=== PATIENT | male | born 1960 | race Two or more races ===

== ENCOUNTER 2024-07-11 18:21 | Inpatient (IN) | payer OTHER, MEDICAID ==
[~2024-07-11] VITALS: Ht 167.6 cm; Wt 72.2 kg
[2024-07-11] MEDS ORDERED: ATOR-47 PO (18:51)
[2024-07-11] MEDS ORDERED: LISI20TA56 PO (18:51)
[2024-07-11] MEDS ORDERED: TAMS0.4C39 PO (18:51)
[2024-07-11] MEDS ORDERED: NIFE90TA75 PO (18:51)
--- NOTE | 2024-07-11 19:13 | DVH ---
CHEST RADIOGRAPH Indication: P pain Technique: Single frontal view of the chest was obtained COMPARISON: None FINDINGS: Lines and Tubes: None Lungs: Clear Pleura: No effusion. No pneumothorax. Cardiomediastinal contours: Unremarkable Bones: Unremarkable IMPRESSION: No acute disease.
[2024-07-11 19:36] LABS: Basophils # (auto) 0.1 10 ^3/uL (0-0.2); Basophils % (auto) 1.1 % (0.0-2.0); Eosinophils # (auto) 0.2 10 ^3/uL (0-0.8); Eosinophils % (auto) 2.5 % (0.0-7.0); Hematocrit 40.1 % (41.0-53.0); Hemoglobin 13.7 g/dL (13.5-17.5); Lymphocytes # (auto) 2.2 10 ^3/uL (0.4-5.4); Lymphocytes % (auto) 25.2 % (10.0-50.0); Mean Corpuscular Hemoglobin 31.1 pg (28.0-32.0); Mean Corpuscular Hgb Conc. 34.2 g/dL (32.0-36.0); Mean Corpuscular Volume 90.9 fL (80.0-100.0); Monocytes # (auto) 0.6 10 ^3/uL (0-1.3); Monocytes % (auto) 7.2 % (0.0-12.0); Neutrophils # (auto) 5.5 10 ^3/uL (1.6-8.6); Platelet Count (auto) 260 10^3/uL (140-450); Red Blood Cells 4.42 10^6/uL (4.5-5.90); Red Cell Distribution Width 13.5 % (11.8-14.3); White Blood Cell 8.7 10^3/uL (4.4-10.8)
[2024-07-11 19:51] LABS: Alanine Aminotransferase 40 U/L (7-40); Albumin 4.4 g/dL (3.2-4.8); Alkaline Phosphatase 81 U/L (46-116); Anion Gap 7 (5-15); Aspartate Aminotransferase 19 U/L (13-40); BUN/Creatinine Ratio 20.5 (10.0-20.0); Blood Urea Nitrogen 16 mg/dL (9-23); Carbon Dioxide 27 mmol/L (20-31); Glucose 81 mg/dL (74-106); INR 0.97 (0.9-1.15); Partial Thromboplastin Time 25.6 SEC (24.5-34.5); Potassium 4.1 mmol/L (3.5-5.1); Prothrombin Time 10.3 sec (9.3-11.8); Sodium 144 mmol/L (136-145)
[2024-07-11 19:52] LABS: Total Protein 6.6 g/dL (5.7-8.2)
[2024-07-11 19:53] LABS: Bilirubin, Total 0.2 mg/dL (0.2-1.0); Calcium 10.6 mg/dL (8.7-10.4); Chloride 110 mmol/L (98-107)
--- NOTE | 2024-07-11 20:01 | ED.PDOC ---
History of Present Illness HPI Comments 63 year old male complains of chronic neck and lower back pain and states that he has been losing strength in his arms and legs for the last 6 months. patient was evaluated by Dr Martínez who told him to come to the ED for admission for pre- op to go to surgery Chief Complaint: General Weakness Time Seen by MD: 18:27 Allergies: Coded Allergies: NO KNOWN ALLERGIES (Unverified , 07/11/24) Home Meds Reported Medications Lisinopril (Lisinopril) 20 Mg Tab, 1 TAB PO DAILY, #30 TAB 5 Refills 07/11/24 Nifedipine (Nifedipine Er) 90 Mg Tab, 1 TAB PO DAILY, #30 TAB 5 Refills 07/11/24 Atorvastatin Calcium (ATORVASTATIN CALCIUM) 80 Mg Tab, 1 TAB PO DAILY, #30 TAB 5 Refills 07/11/24 Tamsulosin Hcl (Tamsulosin Hcl) 0.4 Mg Cap, 0.4 MG PO QPM for 30 Days, MG 07/11/24 Information Source: Patient Mode of Arrival: Wheelchair Severity: Severe Timing: Months Duration: Other Past Medical History PAST MEDICAL HISTORY: High Lipids, HTN Past Medical History (Other): spinal injury Surgical History: Unknown Family History Family History: Reviewed,noncontributory to illness Social History Smoker: Unknown Alcohol: Unknown Constitutional: reports: fatigue Neurological: reports: tingling, weakness All Other Systems: Reviewed and Negative Physical Exam General Appearance: Moderate Distress, Normal HEENT: Normal ENT Inspection, Pharynx Normal, TMs Normal Neck: Full Range of Motion, Non-Tender, Normal, Normal Inspection Respiratory: Chest Non-Tender, Lungs Clear, No Accessory Muscle Use, No R espiratory Distress, Normal Breath Sounds Cardiovascular: No Edema, No JVD, No Murmur, No Gallop, Normal Peripheral Pulses, Regular Rate/Rhythm Breast Exam: Deferred Gastrointestinal: No Organomegaly, Non Tender, No Pulsatile Mass, Normal Bowel Sounds, Soft Genitalia: Deferred Pelvic: Deferred Rectal: Deferred Extremities: No calf tenderness, Normal capillary refill, Normal inspection, Normal range of motion, Non-tender, No pedal edema Musculoskeletal : Apperance: Normal Neurologic: No Motor Deficits, Other (motor 5/5, sensation grossly intact) Cerebellar Function: Normal Reflexes: Normal Skin: Dry, Normal Color, Warm Lymphatic: No Adenopathy Was a procedure done? Was a procedure done?: No Differential Dx Considerations may include: Differential diagnosis includes but is not limited to: coronary ischemia, dehydration, sepsis, electrolyte abnormality, symptomatic anemia, hypovolemia and others X-Ray, Labs, Meds, VS Vital Signs Date Time Temp Pulse Resp B/P (MAP) Pulse Ox O2 Delivery O2 Flow Rate FiO2 07/11/24 18:35 98.5 84 18 135/105 (115) 96 Lab Test 07/11/24 19:13 Range/Units White Blood Count 8.7 4.4-10.8 10^3/uL Red Blood Count 4.42 L 4.5-5.90 10^6/uL Hemoglobin 13.7 13.5-17.5 g/dL Hematocrit 40.1 L 41.0-53.0 % Mean Corpuscular Volume 90.9 80.0-100.0 fL Mean Corpuscular Hemoglobin 31.1 28.0-32.0 pg Mean Corpuscular Hemoglobin Concent 34.2 32.0-36.0 g/dL Red Cell Distribution Width 13.5 11.8-14.3 % Platelet Count 260 140-450 10^3/uL Mean Platelet Volume 9.7 6.9-10.8 fL Neutrophils (%) (Auto) 64.0 37.0-80.0 % Lymphocytes (%) (Auto) 25.2 10.0-50.0 % Monocytes (%) (Auto) 7.2 0.0-12.0 % Eosinophils (%) (Auto) 2.5 0.0-7.0 % Basophils (%) (Auto) 1.1 0.0-2.0 % Neutrophils # (Auto) 5.5 1.6-8.6 10 ^3/uL Lymphocytes # (Auto) 2.2 0.4-5.4 10 ^3/uL Monocytes # (Auto) 0.6 0-1.3 10 ^3/uL Eosinophils # (Auto) 0.2 0-0.8 10 ^3/uL Basophils # (Auto) 0.1 0-0.2 10 ^3/uL Nucleated Red Blood Cells 0.0 % Prothrombin Time 10.3 9.3-11.8 sec Prothrombin Time INR 0.97 0.9-1.15 Activated Partial Thromboplast Time 25.6 24.5-34.5 SEC Sodium Level 144 136-145 mmol/L Potassium Level 4.1 3.5-5.1 mmol/L Chloride Level 110 H 98-107 mmol/L Carbon Dioxide Level 27 20-31 mmol/L Anion Gap 7 5-15 Blood Urea Nitrogen 16 9-23 mg/dL Creatinine 0.78 0.700-1.30 mg/dL Glomerular Filtration Rate Calc 99 >90 mL/min BUN/Creatinine Ratio 20.5 H 10.0-20.0 Serum Glucose 81 74-106 mg/dL Calcium Level 10.6 H 8.7-10.4 mg/dL Total Bilirubin 0.2 0.2-1.0 mg/dL Aspartate Amino Transferase (AST) 19 13-40 U/L Alanine Aminotransferase (ALT) 40 7-40 U/L Alkaline Phosphatase 81 46-116 U/L Total Protein 6.6 5.7-8.2 g/dL Albumin 4.4 3.2-4.8 g/dL Time of 1ST Reevaluation: 19:30 Reevaluation 1ST: Unchanged Patient Education/Counseling: Diagnosis, Treatment Family Education/Counseling: No Family Present Departure 1 Departure Time of Disposition: 19:59 Impression: Primary Impression: Cervical nerve root impingement Additional Impression: Low back pain Disposition: ADMITTED INPATIENT Condition: Guarded Discharged With: Self Critical Care Note Critical Care Time?: Yes (45 min-critical care time only) Critical care comment: Total critical care time: Approximately 36 minutes Due to a high probability of clinically significant, life threatening deterioration, the patient required my highest level of preparedness to intervene emergently and I personally spent this critical care time directly and personally managing the patient. This critical care time included obtaining a history; examining the patient; pulse oximetry; ordering and review of studies; arranging urgent treatment with development of a management plan; evaluation of patient's response to treatment; frequent reassessment; and, discussions with other providers. This critical care time was performed to assess and manage the high probability of imminent, life-threatening deterioration that could result in multi-organ failure. It was exclusive of separately billable procedures and treating other patients. Stability Stability form required: No Heart Score Heart Score: Heart Score Response (Comments) Value History N/A 0 EKG N/A 0 Age N/A 0 Risk Factors N/A 0 Troponin N/A 0 Total 0 OJ BRIONES MD Jul 11, 2024 20:01
[2024-07-11] MEDS ORDERED: MORPHINE SULFATE INJ 2 MG/ml SYRG IV PRN (23:15)
[2024-07-11] MEDS ORDERED: ONDANSETRON HCL 4 MG/2 ML VIAL IV PRN (23:15)
[2024-07-12] VITALS (8 sets, daily range): BP systolic 123–162; BP diastolic 61–87; PULSE 62–74; RESP 16–20; TEMP 97.5–98.6; O2SAT 93–99
[2024-07-12 00:03] LABS: Alanine Aminotransferase 36 U/L (7-40); Albumin 4.4 g/dL (3.2-4.8); Alkaline Phosphatase 74 U/L (46-116); Anion Gap 6 (5-15); Aspartate Aminotransferase 17 U/L (13-40); BUN/Creatinine Ratio 24.2 (10.0-20.0); Blood Urea Nitrogen 16 mg/dL (9-23); Calcium 10.2 mg/dL (8.7-10.4); Carbon Dioxide 23 mmol/L (20-31); Glucose 88 mg/dL (74-106); Potassium 3.8 mmol/L (3.5-5.1); Sodium 141 mmol/L (136-145)
[2024-07-12 00:04] LABS: Total Protein 6.8 g/dL (5.7-8.2)
[2024-07-12 00:05] LABS: Bilirubin, Total 0.3 mg/dL (0.2-1.0); Chloride 112 mmol/L (98-107)
--- NOTE | 2024-07-12 00:36 | DVHHP2 ---
Admitting Diagnosis: spinal stenosis with myelopathy , spinal cord damage History of Present Illness History Source: Patient, MD Notes Exam Limitations: No limitations HPI Mr. 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 Patient states he was evaluated by PCP, was told to come to the ED for admission for pre-op clearance and spinal surgery. I spoke to Dr. Martínez who stated patient was sent for a diagnosis of cervical spinal stenosis with myelopathy and spinal cord damage seen on MRI images and for admission for pre op surgical clearance for surgical procedure tentatively . Patient will be admitted for pre op surgical clearance and spinal orthopedic surgeon consult. Home Meds Reported Medications Lisinopril (Lisinopril) 20 Mg Tab, 1 TAB PO DAILY, #30 TAB 5 Refills 07/11/24 Nifedipine (Nifedipine Er) 90 Mg Tab, 1 TAB PO DAILY, #30 TAB 5 Refills 07/11/24 Atorvastatin Calcium (ATORVASTATIN CALCIUM) 80 Mg Tab, 1 TAB PO DAILY, #30 TAB 5 Refills 07/11/24 Tamsulosin Hcl (Tamsulosin Hcl) 0.4 Mg Cap, 0.4 MG PO QPM for 30 Days, MG 07/11/24 Past Medical History Cardiac: HTN, Hyperlipidemia Pulmonary: No pertinent Hx Central Nervous System: No pertinent Hx GI: No pertinent Hx Hemotology/Oncology: No pertinent Hx Hepatobiliary: No pertinent Hx Psychiatric: No pertinent Hx Musculoskeletal: No pertinent Hx Rheumotologic: No pertinent Hx Infectious Disease: No peritnent Hx ENT: No pertinent Hx Renal/: No pertinent Hx Endocrine: No pertinent Hx Dermatology: No pertinent Hx Smoker: No Hx (Negative) Alocohol: None Drugs: None Lives with: With family Domestic Violence: Neg Review of Systems Constitutional: No symptom reported Ears, Nose, & Throat: No symptom reported Eyes: No symptom reported Pulmonary/Respiratory: No symptom reported Cardiovascular: No symptom reported Gastrointestinal: No symptom reported Genitourinary: No symptom reported Musculoskeletal: Neck pain, Back pain Skin: No symptom reported Psychiatric: No symptom reported Endocrine: No symptom reported Hemotologic/Lymphatic: No symptom reported H&P Exam Vital Signs Vital Signs Date Time Temp Pulse Resp B/P (MAP) Pulse Ox O2 Delivery O2 Flow Rate FiO2 07/11/24 20:19 97.7 77 14 153/102 (119) 95 97.7 General Appeara: Well developed, Well nourished, Normal Appearance Head Exam: Normal inspection Neck Exam: Normal inspection, Non-tender, Normal alignment Eye Exam: bilateral eye Normal inspection, bilateral eye PERRL, bilateral eye EOMI Ear Exam: bilateral ear Auricle normal Nasal Exam: Normal inspection Mouth: Normal Inspection Pulmonary/Respiratory: Normal inspection, Normal breath sounds, Chest non- tender, Lungs clear Cardiovascular/Chest: Normal inspection, Regular rate, Normal Rhythm Peripheral Pulses: 2+ dorsalis pedis (R), 2+ dorsalis pedis (L), 2+ Radial (R), 2+ Radial (L) Abdominal Exam: Normal bowel sounds, Soft Rectal Exam: Deferred Back Exam: Normal inspection Male Genital Exam: Not done Hand Exam: Other (bilateral hands 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 Exam: Normal hearing, Normal speech, PERRL Neuro/Mental St: Alert, Oriented Appearance: Appropriate appearance, Appropriate insight Thoughts/Psych: Normal thought pattern Skin Exam: Normal inspection, Normal color, Warm/dry Labs/Xrays Labs Test 07/11/24 23:33 07/11/24 19:13 Range/Units Sodium Level 141 136-145 mmol/L Potassium Level 3.8 3.5-5.1 mmol/L Chloride Level 112 H 98-107 mmol/L Carbon Dioxide Level 23 20-31 mmol/L Anion Gap 6 5-15 Blood Urea Nitrogen 16 9-23 mg/dL Creatinine 0.66 L 0.700-1.30 mg/dL Glomerular Filtration Rate Calc 104 >90 mL/min BUN/Creatinine Ratio 24.2 H 10.0-20.0 Serum Glucose 88 74-106 mg/dL Calcium Level 10.2 8.7-10.4 mg/dL Total Bilirubin 0.3 0.2-1.0 mg/dL Aspartate Amino Transferase (AST) 17 13-40 U/L Alanine Aminotransferase (ALT) 36 7-40 U/L Alkaline Phosphatase 74 46-116 U/L Total Protein 6.8 5.7-8.2 g/dL Albumin 4.4 3.2-4.8 g/dL White Blood Count 8.7 4.4-10.8 10^3/uL Red Blood Count 4.42 L 4.5-5.90 10^6/uL Hemoglobin 13.7 13.5-17.5 g/dL Hematocrit 40.1 L 41.0-53.0 % Mean Corpuscular Volume 90.9 80.0-100.0 fL Mean Corpuscular Hemoglobin 31.1 28.0-32.0 pg Mean Corpuscular Hemoglobin Concent 34.2 32.0-36.0 g/dL Red Cell Distribution Width 13.5 11.8-14.3 % Platelet Count 260 140-450 10^3/uL Mean Platelet Volume 9.7 6.9-10.8 fL Neutrophils (%) (Auto) 64.0 37.0-80.0 % Lymphocytes (%) (Auto) 25.2 10.0-50.0 % Monocytes (%) (Auto) 7.2 0.0-12.0 % Eosinophils (%) (Auto) 2.5 0.0-7.0 % Basophils (%) (Auto) 1.1 0.0-2.0 % Neutrophils # (Auto) 5.5 1.6-8.6 10 ^3/uL Lymphocytes # (Auto) 2.2 0.4-5.4 10 ^3/uL Monocytes # (Auto) 0.6 0-1.3 10 ^3/uL Eosinophils # (Auto) 0.2 0-0.8 10 ^3/uL Basophils # (Auto) 0.1 0-0.2 10 ^3/uL Nucleated Red Blood Cells 0.0 % Prothrombin Time 10.3 9.3-11.8 sec Prothrombin Time INR 0.97 0.9-1.15 Activated Partial Thromboplast Time 25.6 24.5-34.5 SEC Assessment/Plan Problem List: (1) Spinal stenosis (2) Myopathy Plan This is a 63 yo male with a known history of hyperlipidemia and hypertension who presents with neck and back pain sent for surgical spinal surgery clearance and spinal orthopedic surgical procedure. 1. Cervical spinal stenosis with myelopathy 2. Spinal cord damage Plan Admit Med Surgical unit Spinal Orthopedic Surgeon consultation IV fluids CBC, BMP, EKG, PT/INR Cardiology consultation for cardiac clearance 2D echocardiogram Urinalysis Discussed all above with patient who verbalizes agreement and understanding of care plan. All questions were answered. Discussed assessment and care plan with Spinal Orthopedic Surgeon Dr. Martínez. Discussed assessment and care plan with supervising MD. Plan discussed with: Patient, Other Code Visit Code Visit Total Time (mins): 45 Additional Comments Additional Comments Additional Comments 63-year-old male with a known history of hypertension, dyslipidemia, BPH who initially presented to the hospital bed chronic neck and lower back pain, numbness in arms and hands along with the loss of strength for last six months or so. 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 Patient underwent MRI as an outpatient found to have spinal cord damage at cervical spine. 1. Acute on chronic cervical myelopathy 2. Cervical spine stenosis 3. Hypertension 4. Dyslipidemia 5. BPH -admitted to telemetry, 2D echo cardiology consultation for preop clearance, spine surgery consultation for surgical intervention for cervical myelopathy. MARTINEZ CRABTREE Jul 12, 2024 00:36 ACE CERVANTES MD Jul 12, 2024 14:28
[2024-07-12] MEDS: D5W/SOD CHL 0.45% 1,000 ML IV SCH (04:02)
[2024-07-12 04:04] LABS: Urine Bacteria None Seen /hpf (None Seen)
[2024-07-12 04:12] LABS: Urine Blood TRACE /uL (Negative); Urine Clarity Clear (Clear); Urine Color Light-Yellow (Yellow); Urine Protein, UAD Negative (Negative); Urine Specific Gravity 1.024 (1.001-1.035); Urine Squamous Epithelial Cell None Seen /hpf (<5); Urine Urobilinogen Normal (Negative); Urine WBC < 1 /HPF (0-3); Urine pH 5.5 (5.0-9.0)
[2024-07-12 10:51] LABS: Basophils # (auto) 0.1 10 ^3/uL (0-0.2); Basophils % (auto) 0.9 % (0.0-2.0); Eosinophils # (auto) 0.2 10 ^3/uL (0-0.8); Eosinophils % (auto) 2.5 % (0.0-7.0); Hematocrit 37.6 % (41.0-53.0); Hemoglobin 12.5 g/dL (13.5-17.5); Lymphocytes # (auto) 1.5 10 ^3/uL (0.4-5.4); Lymphocytes % (auto) 19.9 % (10.0-50.0); Mean Corpuscular Hemoglobin 30.5 pg (28.0-32.0); Mean Corpuscular Hgb Conc. 33.3 g/dL (32.0-36.0); Mean Corpuscular Volume 91.6 fL (80.0-100.0); Monocytes # (auto) 0.7 10 ^3/uL (0-1.3); Monocytes % (auto) 8.5 % (0.0-12.0); Neutrophils # (auto) 5.3 10 ^3/uL (1.6-8.6); Neutrophils % (auto) 68.2 % (37.0-80.0); Platelet Count (auto) 228 10^3/uL (140-450); Red Blood Cells 4.11 10^6/uL (4.5-5.90); Red Cell Distribution Width 13.5 % (11.8-14.3); White Blood Cell 7.7 10^3/uL (4.4-10.8)
--- NOTE | 2024-07-12 12:54 | DVHINCON2 ---
Consultation - Spinal Surgery Date Seen: Jul 12, 2024 Referring Physician Referring Physician Attending Doctor: Carmen Rasheed Pantograph Ii Engraver Reason for Consultation spinal stenosis with myelopathy , spinal cord damage History of Present Illness History of Present Illness Mr. 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 Patient states he was evaluated by PCP, was told to come to the ED for admission for pre-op clearance and spinal surgery. I spoke to Dr. Martínez who stated patient was sent for a diagnosis of cervical spinal stenosis with myelopathy and spinal cord damage seen on MRI images and for admission for pre op surgical clearance for surgical procedure tentatively . Patient will be admitted for pre op surgical clearance and spinal orthopedic surgeon consult. Family and Social History Family and Social History noncontributory in this case Allergies and medications Allergies: Coded Allergies: NO KNOWN ALLERGIES (Unverified , 07/11/24) Home Meds Reported Medications Lisinopril (Lisinopril) 20 Mg Tab, 1 TAB PO DAILY, #30 TAB 5 Refills 07/11/24 Nifedipine (Nifedipine Er) 90 Mg Tab, 1 TAB PO DAILY, #30 TAB 5 Refills 07/11/24 Atorvastatin Calcium (ATORVASTATIN CALCIUM) 80 Mg Tab, 1 TAB PO DAILY, #30 TAB 5 Refills 07/11/24 Tamsulosin Hcl (Tamsulosin Hcl) 0.4 Mg Cap, 0.4 MG PO QPM for 30 Days, MG 07/11/24 Review of systems Review of Systems: HEENT:Normal, CVS:Normal, RESPIRATORY:Normal, GI:Normal, :Normal, NEURO:Normal Examination Vital signs Vital Signs Date Time Temp Pulse Resp B/P (MAP) Pulse Ox O2 Delivery O2 Flow Rate FiO2 07/12/24 12:39 98.1 62 16 147/67 (93) 93 98.1 07/12/24 08:00 Room Air* 0 21 Medications Current Medications Medications (Trade) Dose Ordered Sig/Julien Route PRN Reason Start Time Stop Time Status Last Admin Ondansetron HCl (Zofran) 4 mg Q6HP PRN IV NAUSEA / VOMITING 07/11/24 23:15 Morphine Sulfate 2 mg Q6HPRN PRN IV NAUSEA / VOMITING 07/11/24 23:15 Dextrose/Sodium Chloride 1,000 ml @ 75 mls/hr [id number] IV 07/11/24 23:30 07/12/24 04:02 Laboratory Labs Test 07/12/24 10:23 07/11/24 23:59 07/11/24 23:33 07/11/24 19:13 Range/Units White Blood Count 7.7 4.4-10.8 10^3/uL Red Blood Count 4.11 L 4.5-5.90 10^6/uL Hemoglobin 12.5 L 13.5-17.5 g/dL Hematocrit 37.6 L 41.0-53.0 % Mean Corpuscular Volume 91.6 80.0-100.0 fL Mean Corpuscular Hemoglobin 30.5 28.0-32.0 pg Mean Corpuscular Hemoglobin Concent 33.3 32.0-36.0 g/dL Red Cell Distribution Width 13.5 11.8-14.3 % Platelet Count 228 140-450 10^3/uL Mean Platelet Volume 9.4 6.9-10.8 fL Neutrophils (%) (Auto) 68.2 37.0-80.0 % Lymphocytes (%) (Auto) 19.9 10.0-50.0 % Monocytes (%) (Auto) 8.5 0.0-12.0 % Eosinophils (%) (Auto) 2.5 0.0-7.0 % Basophils (%) (Auto) 0.9 0.0-2.0 % Neutrophils # (Auto) 5.3 1.6-8.6 10 ^3/uL Lymphocytes # (Auto) 1.5 0.4-5.4 10 ^3/uL Monocytes # (Auto) 0.7 0-1.3 10 ^3/uL Eosinophils # (Auto) 0.2 0-0.8 10 ^3/uL Basophils # (Auto) 0.1 0-0.2 10 ^3/uL Nucleated Red Blood Cells 0.0 % Urine Color Light-yellow Yellow Urine Clarity Clear Clear Urine pH 5.5 5.0-9.0 Urine Specific [place] 1.024 1.001-1.035 Urine Protein Negative Negative Urine Ketones Negative Negative Urine Blood Trace H Negative /uL Urine Nitrite Negative Negative Urine Bilirubin Negative Negative Urine Urobilinogen Normal Negative mg/dL Urine Leukocyte Esterase Negative Negative /uL Urine RBC 1 0 - 3 /hpf Urine Microscopic WBC < 1 0-3 /HPF Urine Squamous Epithelial Cells None seen <5 /hpf Urine Bacteria None seen None Seen /hpf Urine Glucose Normal Normal mg/dL Sodium Level 141 136-145 mmol/L Potassium Level 3.8 3.5-5.1 mmol/L Chloride Level 112 H 98-107 mmol/L Carbon Dioxide Level 23 20-31 mmol/L Anion Gap 6 5-15 Blood Urea Nitrogen 16 9-23 mg/dL Creatinine 0.66 L 0.700-1.30 mg/dL Glomerular Filtration Rate Calc 104 >90 mL/min BUN/Creatinine Ratio 24.2 H 10.0-20.0 Serum Glucose 88 74-106 mg/dL Calcium Level 10.2 8.7-10.4 mg/dL Total Bilirubin 0.3 0.2-1.0 mg/dL Aspartate Amino Transferase (AST) 17 13-40 U/L Alanine Aminotransferase (ALT) 36 7-40 U/L Alkaline Phosphatase 74 46-116 U/L Total Protein 6.8 5.7-8.2 g/dL Albumin 4.4 3.2-4.8 g/dL Prothrombin Time 10.3 9.3-11.8 sec Prothrombin Time INR 0.97 0.9-1.15 Activated Partial Thromboplast Time 25.6 24.5-34.5 SEC Examination: HEENT:Normal, NECK:Normal, LUNGS:Normal, CVS:Normal, ABDOMEN:Normal, MSK:Normal, SKIN:Normal, NEURO:Abnormal (Complains of low back pain patient is experiencing extensive muscle cramping to the lower extremities he is unable to ambulate barely able to progress with a cane. He is unable to control his feet and ankles.) Problem List/Assessment/Plan Problems: (1) Cervical nerve root impingement (2) Spinal stenosis Assessment and Plan This patient is well known to Dr Martínez and the patient has been suffering from spinal stenosis for some time as demonstrated in excruciating pain which is impacting his ability to function during his activities of daily living. Has has exhausted conservative management of his ailments and is a candidate for surgical intervention. The plan is for surgery on 07/13/2024 for a cervical three-seven anterior cervi clarke diskectomy and fusion with instrumentation and bone graft Proceed with medical and cardiac clearance for spine surgery. Patient is a surgical consideration pending the availability of the OR. NPO 07/12/24 at midnight. Call with questions Tiffanie Montero [facility] Orthopaedic Spine Surgery nurse practitioner For Dr Cheyenne Martínez Patient was examined, chart reviewed, labs evaluated, and diagnostic studies and findings analyzed. Case was discussed with Dr. Boo Martínez who formulated the plan of care. This medical document was created using an electronic medical record system with [employer] dictation system. Although this document has been carefully reviewed, there might still be some phonetic and typographical errors. These areas are purely typographical due to imperfections of the software programs, and do not reflect any compromise in the patient's medical care. Plan discussed with Plan discussed with: Patient ERICA MONTERO PSYCHOSOCIAL REHABILITATION COUNSELOR Jul 12, 2024 12:54
[2024-07-12] MEDS: TAMSULOSIN HYDROCHLORIDE 0.4 MG CAP PO SCH (18:44)
[2024-07-13] VITALS (9 sets, daily range): BP systolic 121–149; BP diastolic 33–77; PULSE 63–87; RESP 16–96; TEMP 97.5–98.3; O2SAT 90–97
--- NOTE | 2024-07-13 06:05 | DVHINCON2 ---
DATE OF CONSULTATION: 07/12/2024 REFERRING PHYSICIAN: ____. CONSULTING PHYSICIAN: Dr. Smith. HISTORY OF PRESENT ILLNESS: The patient is a 63-year-old male with history of hypertension, tobacco use, presented to the hospital for back surgery. I was asked to do preoperative cardiac risk assessment. The patient denies prior history of heart disease. Denies any chest pain, shortness of breath. Denies any orthopnea, paroxysmal nocturnal dyspnea or leg swelling. PAST MEDICAL HISTORY: Hypertension. MEDICATIONS: Per med rec. ALLERGIES: No known drug allergies. PHYSICAL EXAMINATION: GENERAL: Alert and awake, in no form of cardiopulmonary distress. VITAL SIGNS: Blood pressure 135/87, pulse 70 per minute, saturation 95%. HEENT: No carotid bruits. No jugular venous distention. CHEST: Bilateral air entry. CARDIOVASCULAR SYSTEM: Precordial and carotid pulses palpable. Normal S1, S2. Regular rate and rhythm. No appreciable gallop or rubs. EXTREMITIES: No peripheral edema. DIAGNOSTIC DATA: White count 7, hemoglobin 12, platelets 220. Sodium 141, potassium 3.8, creatinine is 0.66. ASSESSMENT AND PLAN: A 63-year-old male with history of hypertension, presented to the hospital with back pain, currently being evaluated for back surgery. The patient denies a prior history of heart disease. Denies any active cardiac symptoms. We will obtain echo to assess LV function and valves. If echo is unremarkable, patient may proceed with planned surgery as an intermediate risk. Thank you for allowing me to participate in the care of this patient. MD ZACARIAS Boles/TELLY/YOUNG TID: [id number] RECEIPT: [id number]
--- NOTE | 2024-07-13 07:02 | DVHHP2 ---
History Allergies: Coded Allergies: NO KNOWN ALLERGIES (Unverified , 07/11/24) Chief Complaint: Cervical stenosis Present Illness(Onset/Duration Patient has had bilateral lower leg and extremity weakness as well as excruciating muscle spasms inability to control his feet and ankle demonstrating with bilateral footdrop. Patient states he has got low back pain, he also does not complain of any shoulder or neck pain however he does state he is feeling stiff. Patient is well known to Dr. Cole's office and has been treated for this ailment with physical therapy and pain management which have failed. Noncontributory in this case Exam Exam General Appearance: None, Normal, Thin HEENT: Normal ENT Inspection Neck: Normal, Normal Inspection Respiratory: No Accessory Muscle Use, None, No Respiratory Distress Cardiovascular: No Edema, No JVD, None Gastrointestinal: Other (No complaints of abdominal discomfort) Genitalia: Deferred Pelvic: Deferred Rectal: Deferred Extremities: Calf tenderness, Decreased range of motion, Inflammation, Normal capillary refill, Normal inspection, Other (Lower legs cramping) Neurologic: Normal Mood, No Sensory Deficits Cerebellar Function: Ataxia (Ataxia reported per patient difficulty walking) Additional comments: Patient arrives today for elective surgery with Dr. Boo grey C3-7 anterior cervical discectomy and fusion with instrumentation and bone graft The patient was informed of the risks and benefits of the procedure. These include but are not limited to complications of anesthesia, postoperative infection, incomplete relief of symptoms, recurrence of symptoms, damage to blood vessels, nerves and tendons, deep venous thrombosis, pulmonary embolism and possible need for repeat surgery in the future. The risks/benefits/alternatives of surgery including but not limited to pain, bleeding, infection, damage to surrounding soft tissue structures, need for reoperation or future surgery, persistent pain/disability/deformity, pseudoarthrotsis, bone graft collapse or extrusion of interbody device, instrumentation failure, need for instrumentation removal, dural tear, temporary or permanent nerve root damage, paralysis, stroke, deep vein thrombosis, pulmonary embolism, and any associated anesthetic risk (dry mouth, sore th roat, dental damage, myocardial infarction, respiratory depression, blindness) were described to the patient in detail and the patient wishes to proceed. No guarantee of surgical outcome/improvement was implied. All of the questions were answered thoroughly and consents were obtained. We will obtain all the necessary preop tests in order for the patient to be cleared medically. Call with questions Tiffanie Montero [facility] Orthopaedic Spine Surgery nurse practitioner For Dr Cheyenne Martínez Patient was examined, chart reviewed, labs evaluated, and diagnostic studies and findings analyzed. Case was discussed with Dr. Boo Martínez who formulated the plan of care. This medical document was created using an electronic medical record system with [employer] dictation system. Although this document has been carefully reviewed, there might still be some phonetic and typographical errors. These areas are purely typographical due to imperfections of the software programs, and do not reflect any compromise in the patient's medical care. ERICA MONTERO NP Jul 13, 2024 07:02
[2024-07-13] MEDS ORDERED: fentaNYL CITRATE 5 ML ONE (07:06)
[2024-07-13] MEDS ORDERED: KETAMINE 50mg/ML 1ml syringe ONE (07:08)
[2024-07-13] MEDS ORDERED: KETOROLAC TROMETH 30 MG/ML 1ML VIAL ONE (07:08)
[2024-07-13] MEDS ORDERED: LIDOCAINE 1% INJ PF 5ML AMP ONE (07:08)
[2024-07-13] MEDS ORDERED: MIDAZOLAM HCL 2MG/2ML 2ml VIAL (1mg/ml) ONE (07:08)
[2024-07-13] MEDS ORDERED: GLYCOPYRROLATE 0.2 MG/ML 1ML VIAL ONE (07:08)
[2024-07-13] MEDS ORDERED: HYDROCORTISONE SOD SUCC 100 MG/2ML INJ VIAL ONE (07:08)
[2024-07-13] MEDS ORDERED: PROPOFOL 10 MG/ML 20 ML IV ONE (07:08)
[2024-07-13] MEDS ORDERED: HYDROmorphone HCL 2 MG/ML VL/or syr ONE (07:08)
[2024-07-13] MEDS ORDERED: ONDANSETRON HCL 4 MG/2 ML VIAL ONE (07:08)
[2024-07-13] MEDS ORDERED: fentaNYL CITRATE 100 MCG/2 ML VL ONE (07:08)
[2024-07-13] MEDS ORDERED: ROCURONIUM 10MG/ML 10ML VIAL IV ONE (07:08)
[2024-07-13] MEDS ORDERED: ePHEDrine SULFATE 50 MG/ML AMP ONE (07:08)
[2024-07-13 07:35] LABS: Basophils # (auto) 0.1 10 ^3/uL (0-0.2); Basophils % (auto) 0.9 % (0.0-2.0); Eosinophils # (auto) 0.2 10 ^3/uL (0-0.8); Eosinophils % (auto) 2.5 % (0.0-7.0); Hematocrit 42.5 % (41.0-53.0); Mean Corpuscular Hemoglobin 30.2 pg (28.0-32.0); Mean Corpuscular Hgb Conc. 32.9 g/dL (32.0-36.0); Mean Corpuscular Volume 91.9 fL (80.0-100.0); Monocytes # (auto) 0.6 10 ^3/uL (0-1.3); Monocytes % (auto) 7.2 % (0.0-12.0); Neutrophils # (auto) 5.7 10 ^3/uL (1.6-8.6); Neutrophils % (auto) 66.4 % (37.0-80.0); Platelet Count (auto) 262 10^3/uL (140-450); Red Blood Cells 4.63 10^6/uL (4.5-5.90); Red Cell Distribution Width 13.3 % (11.8-14.3); White Blood Cell 8.6 10^3/uL (4.4-10.8)
[2024-07-13 07:48] LABS: Potassium 3.8 mmol/L (3.5-5.1); Sodium 142 mmol/L (136-145)
[2024-07-13 07:49] LABS: Anion Gap 6 (5-15); Calcium 9.9 mg/dL (8.7-10.4); Carbon Dioxide 26 mmol/L (20-31)
[2024-07-13 07:54] LABS: BUN/Creatinine Ratio 11.8 (10.0-20.0); Blood Urea Nitrogen 9 mg/dL (9-23); Glucose 83 mg/dL (74-106)
[2024-07-13 07:55] LABS: Chloride 110 mmol/L (98-107)
[2024-07-13] MEDS: LIDOCAINE W/ EPINEPHRINE 1% 20ML VIAL ONE (08:59)
[2024-07-13] MEDS: NIFEdipine ER 30 MG TAB PO SCH (10:00)
[2024-07-13] MEDS: LISINOPRIL 20 MG TAB PO SCH (10:00)
--- NOTE | 2024-07-13 10:53 | DVHOP2 ---
Operative Report - 2 Report Details Date: 07/13/24 Preop Diagnosis: cervical spinal stenosis / cervical myelopathy with cord signal changes Postop Diagnosis: same as pre op Surgeon: Boo Martínez MD Hardware Assembler: Chasity Gustafson NP Anesthesiologist: Db Anesthesia: General Consent: The patient was informed of the risks and benefits of the procedure. These include but are not limited to complications of anesthesia, postoperative infection, incomplete relief of symptoms, recurrence of symptoms, damage to blood vessels, nerves and tendons, deep venous thrombosis, pulmonary embolism and possible need for repeat surgery in the future. 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 Cervical Degenerative Disk Disease and Spinal Stenosis with MRI findings showing cord signal changes Causing incapacitating neck pain, radiculopathy and myelopathy/progressive neurologic deficit Procedure: Cervical 3 to 4 anterior cervical discectomy with Cervical 3-4 foraminotomies and facetectomies to decompression the spinal canal and Cervical 4 nerve roots Cervical 4 to 5 anterior cervical discectomy with Cervical 4-5 foraminotomies and facetectomies to decompression the spinal canal and Cervical 5 nerve roots Cervical 5 to 6 anterior cervical discectomy with Cervical 5-6 foraminotomies and facetectomies to decompression the spinal canal and Cervical 6 nerve roots Cervical 3-6 anterior cervical Fusion Cervical 3-6 anterior cervical instrumentation with freestanding cages Cervical 3-4 placement of allograft prosthetic device Cervical 4-5 placement of allograft prosthetic device Cervical 5-6 placement of allograft prosthetic device Microscope for micro dissection Surgeon: Boo Martínez MD Anesthesia: General Assist: Chasity Gustafson NP Fluids and EBL: see anesthesia note Procedure Note: The patient was seen in the Pre-anesthesia Care Unit and the site of the incis ion was initialed by me with a felt tipped marker. All questions by the patient were answered to the satisfaction of the patient and the chart was reviewed. The patient was taken to the operating room and placed supine on the [place] top table. General anesthesia was induced. Neuromonitoring leads were placed. A rolled towel was placed between the shoulder blades to hyperextend out the chest which will allow better exposure of the cervical spine. Halter traction to 10 pounds was placed. The arms were padded and adducted to the patients side making sure all pulses in the hands were present. Tape traction was undertaken on the shoulders to give us better radiographic exposure of the distal cervical spine. A gel-pad was placed under the occiput and 5 degrees of extension was placed on the neck without adverse effects to the patient. The anterior neck was prepped and draped. Pre-operative antibiotics were given 30 minutes prior to the start of the procedure. A c-arm fluoroscope was used to riri out the incision site. At this time, a time out was taken per usual protocol. Next an incision was made through the skin with a 15 blade scalpel through the subcutaneous tissue down to the platysma. Self-retainers were placed. The platysma was incised along the longitudinal border with a Metzenbaum scissors. Blunt dissection was made through the deep cervical and pre-tracheal fascia taking care to protect the carotid sheath laterally and the Trachea/esophagus medially. The dissection was carried down to the prevertebral fascia. Any crossing vessels were ligated using a vascular clip or coagulated with a bovie. An esophageal retractor was next used to retract the trachea/esophagus and a bent [address] through the anterior annulus of the cervical disk and a lateral C-arm fluoroscopic image was taken to confirm that we were at the correct level. Next, bovie electrocautery was used to expose the bones of cervical 3,4,5,6 and bipolar electrocuatery was used to lift up the Longus colli and capitus muscles. Black-Belt Self Retainers were used to retract the longus colli and capitus muscles bilaterally as well as the trachea/esophagus to the right and the carotid sheath to the left. Smooth thin Black-Belt retractors were placed proxi angelito and distally and a needle was placed again in the anterior annulus of the disk and an image taken to confirm the correct level. At this point, the microscope was wheeled in and an 11 blade scalpel incised the anterior annulus of the cervical 3/4 and 4/5 and 5/6 disks. Next, straight and curved curettes removed the remainder of the disks all the way down to the posterior longitudinal ligament. Carefully, a Aj number one rongeur incised the posterior longitudinal ligament at the lateral end of the above disks and using a micro, blunt tip nerve hook to separate the posterior longitudinal ligament from the dura, alternating 1 mm and 2 mm Kerison rongeurs removed the posterior longitudinal ligament. Next, Kerison 1mm and 2 mm rongeurs were alternated to get under the uncinate processes and undercut them to perform foraminotomies and factectomies at the cervical 3/4 and 4/5 and 5/6 levels to decompress the central canal and cervical 4,5 and 6 nerve roots. Next the microscope was wheeled away and the c-arm fluoroscope was wheeled into the field and a lateral image was obtained. Increasing size graft trials were used starting at a 5 mm thick size until the proper tension in the disk space and height mormonism obtained. We then placed final free standing cages at C3/4 and 4/5 and 5/6. Satisfactory placement was confirmed in the AP and lateral views using a C-arm fluoroscope. Copious irrigation of the wound with sterile saline and all bleeding was controlled before closure initiated. At this point, a 10 Danish round Du[address] Drain was place deep to the Platysma muscle and the Platysma was approximated with one interrupted 0-Vicryl suture. The subcutaneous tissue was closed with interrupted 2-0 vicryl sutures and the skin was closed with kenneth. Sterile dressings were placed and a cervical collar placed, the patient extubated, transferred to the stretcher and taken to the Recovery Room in unremarkable condition. Other Notes: Following the case, in PACU, the patient had placement of a [place] J equivalent cervical collar and external bone stimulator Condition Stable Disposition Still a Patient BOO MARTÍNEZ MD Jul 13, 2024 10:53
[2024-07-13] MEDS ORDERED: HYDROmorphone HCL 2 MG/ML VL/or syr IV PRN (11:30)
--- NOTE | 2024-07-13 11:31 | DVH ---
EXAM: XY C ARM FLUOROSCOPY UP TO 60MIN, XY CERVICAL SPINE 3V HISTORY: C3-C6 ANTERIOR CERVICAL DISCECTOMY FUSION FINDINGS: Fluoroscopy was provided for an intraoperative procedure. 7 images were obtained. 6.5 seconds of fl uoroscopic time was utilized. Cumulative radiation dose was reported at 1.44 mGy. IMPRESSION: 1. Fluoroscopy was provided for operative guidance. Please refer to the operative report for detaile d information.
[2024-07-13] MEDS: ceFAZolin 2 GM/D5W100ml 100 ML IV ONE (11:41)
[2024-07-13] MEDS: ONDANSETRON HCL 4 MG/2 ML VIAL IV ONE (11:41)
[2024-07-13] MEDS: TRANEXAMIC ACID 20 ML ONE (11:41)
[2024-07-13] MEDS: CIPROFLOXACIN 400 MG/200 ML IV ONE (11:41)
--- NOTE | 2024-07-13 12:54 | ECG ---
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
--- NOTE | 2024-07-13 13:08 | DVHSR ---
APPROVED REPORT EXAM: Two-dimensional and M-mode echocardiogram with Doppler and color Doppler. INDICATION Tachycardia RISK FACTORS Height: 5'7", Weight: 111 DIMENSIONS LVDd4.9 (3.8-5.7cm)LA (2D)3.9 (1.9-4.0cm)Aortic Root (2.0-3.7cm) LVDs3.3 (2.5-4.0cm)LA (MM) (1.9-4.0cm)Aortic Cusp Exc (1.5-2.0cm) EF (%) 60.0 (55-70%)Rt. Atrium3.3 (1.9-4.0cm)Asc. Aorta cm Mitral Valve MitralMitral Stenosis E/A ratio0.02D MVAcm2 LEFT VENTRICLE The left ventricle is normal size. There is normal left ventricular wall thickness. The left ventricle is normal in structure and function. Left ventricle systolic function is normal. The Ejection Fraction is 60-65%. No regional wall motion abnormalities noted. RIGHT VENTRICLE The right ventricle is normal size. There is normal right ventricular wall thickness. The right ventricular systolic function is normal. ATRIA The left atrium size is normal. The right atrium size is normal. The interatrial septum is intact with no evidence for an atrial septal defect. MITRAL VALVE The mitral valve is normal in structure and function. There is no evidence of mitral valve prolapse. There is no mitral valve stenosis. Mitral regurgitation is mild. PULMONIC VALVE The pulmonary valve is normal in structure and function. There is no pulmonic valvular regurgitation. There is no pulmonic valvular stenosis. TRICUSPID VALVE The tricuspid valve is normal in structure and function. There is no tricuspid valve regurgitation noted. There is no tricuspid valve prolapse or vegetation. There is no tricuspid valve stenosis. AORTIC VALVE The aortic valve is normal in structure and function. No aortic regurgitation is present. There is no aortic valvular stenosis. There is no aortic valvular vegetation. GREAT VESSELS The aortic root is normal in size. PERICARDIAL EFFUSION There is a no pericardial effusion. Other Information Quality : Technically LimitedRhythm : Technically limited study due to body habitus and patient position. Conclusion The left ventricle is normal size. The left ventricle is normal in structure and function. Left ventricle systolic function is normal. The Ejection Fraction is 60-65%. Mitral regurgitation is mild. There is a no pericardial effusion.
--- NOTE | 2024-07-13 14:15 | DVHPN2 ---
Subjective Patient underwent spine surgery intervention today. Complaining of minimal neck pain. 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 Medications Current Medications Medications Dose Ordered Sig/Julien Route Start Time Stop Time Status Last Admin Dose Admin Ondansetron HCl 4 mg Q6HP PRN IV 07/11/24 23:15 Dextrose/Sodium Chloride 1,000 ml @ 75 mls/hr [id number] IV 07/11/24 23:30 07/13/24 02:10 75 MLS/HR Lisinopril 20 mg DAILY PO 07/13/24 10:00 Tamsulosin HCl 0.4 mg QPM PO 07/12/24 18:00 07/12/24 18:44 0.4 MG Atorvastatin Calcium 80 mg HS PO 07/13/24 22:00 Nifedipine 90 mg DAILY PO 07/13/24 10:00 Morphine Sulfate 2 mg Q4HPRN PRN IV 07/13/24 11:30 Cyclobenzaprine HCl 10 mg TID PO 07/13/24 14:00 Throat Lozenges 1 reuben Q2HP PRN MT 07/13/24 11:30 Acetaminophen/ Hydrocodone Bitart 1 tab Q4HP PRN PO 07/13/24 11:30 Laboratory Results Laboratory Tests 07/13/24 06:24 Chemistry Test 07/13/24 06:24 Calcium Level 9.9 mg/dL (8.7-10.4) Magnesium Level 2.0 mg/dL (1.6-2.6) Urinalysis Test 07/11/24 23:59 Urine Color Light-yellow (Yellow) Urine Clarity Clear (Clear) Urine pH 5.5 (5.0-9.0) Urine Specific [place] 1.024 (1.001-1.035) Urine Protein Negative (Negative) Urine Ketones Negative (Negative) Urine Blood Trace /uL (Negative) H Urine Nitrite Negative (Negative) Urine Bilirubin Negative (Negative) Urine Urobilinogen Normal mg/dL (Negative) Urine Leukocyte Esterase Negative /uL (Negative) Urine RBC 1 /hpf (0 - 3) Urine Microscopic WBC < 1 /HPF (0-3) Urine Squamous Epithelial Cells None seen /hpf (<5) Urine Bacteria None seen /hpf (None Seen) Urine Glucose Normal mg/dL (Normal) Assessment/Plan Assessment/Plan 63-year-old male with a known history of hypertension, dyslipidemia, BPH who initially presented to the hospital bed chronic neck and lower back pain, numbness in arms and hands along with the loss of strength for last six months or so. 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 Patient underwent MRI as an outpatient found to have spinal cord damage at cervical spine. 1. Acute on chronic cervical myelopathy status post anterior cervical diskectomy at C3-4/C4-5/C5-6 level 2. Cervical spine stenosis status post spine surgery intervention 3. Hypertension 4. Dyslipidemia 5. BPH -pain meds as needed, follow up spine surgery recommendations. Plan discussed with: Patient My Orders Orders - ACE CERVANTES MD Procedure Category Date Status Time Lisinopril Tablet PHA 07/13/24 In Process (Zestril Tablet) 10:00 Tamsulosin PHA 07/12/24 In Process Hydrochloride (Flomax) 18:00 Atorvastatin (Lipitor) PHA 07/13/24 In Process 22:00 Nifedipine Er PHA 07/13/24 In Process (Procardia Xl 10:00 Initiate Vte DEVI 07/13/24 In Process Prophylaxis 13:32 Date of Service: Jul 13, 2024 Billing Provider: ACE CERVANTES MD Common Visit Codes: NOT BILLABLE ACE CERVANTES MD Jul 13, 2024 14:15
[2024-07-13] MEDS: CYCLOBENZAPRINE HCL 10 MG TAB PO SCH (15:00)
[2024-07-13] MEDS: ATORVASTATIN 20 MG TAB PO SCH (20:15)
[2024-07-13] MEDS: MORPHINE SULFATE INJ 2 MG/ml SYRG IV PRN (20:17)
[2024-07-14] VITALS (7 sets, daily range): BP systolic 124–159; BP diastolic 58–76; PULSE 69–92; RESP 18–19; TEMP 97.6–98.9; O2SAT 91–96
[2024-07-14] MEDS: HYDROcodone-ACET 10/325MG TAB PO PRN (02:01)
[2024-07-14] MEDS: MORPHINE SULFATE 4 MG/ML SYR/VIAL IV PRN (09:15)
[2024-07-14] MEDS: THROAT LOZENGES(CEPASTAT) MT PRN (09:16)
--- NOTE | 2024-07-14 12:42 | DVHPN2 ---
Progress Note - Surgical Date Seen: Jul 14, 2024 Post op day Post op day: 1 Subjective Patient reports: No new complaints, Feels better Review of Systems: HEENT:Normal, CVS:Normal, RESPIRATORY:Normal, GI:Normal, :Normal, MSK:Normal (see H&P for preoperative symptoms), NEURO:Normal Objective Vital signs Vital Sign Date Time Temp Pulse Resp B/P (MAP) Pulse Ox O2 Delivery O2 Flow Rate FiO2 07/14/24 09:15 69 14 146/67 07/14/24 09:00 97.8 95 97.8 07/14/24 08:00 Room Air* 0 21 Total Intake and Output 07/13/24 07/13/24 07/14/24 14:59 22:59 06:59 Intake Total 240 ml 725 ml Output Total 10 ml 115 ml 1050 ml Balance -10 ml 125 ml -325 ml Medications Current Medications Medications Dose Ordered Sig/Julien Route Start Time Stop Time Status Last Admin Dose Admin Ondansetron HCl 4 mg Q6HP PRN IV 07/11/24 23:15 Dextrose/Sodium Chloride 1,000 ml @ 75 mls/hr [id number] IV 07/11/24 23:30 07/14/24 05:08 75 MLS/HR Lisinopril 20 mg DAILY PO 07/13/24 10:00 07/14/24 09:13 20 MG Tamsulosin HCl 0.4 mg QPM PO 07/12/24 18:00 07/13/24 18:11 0.4 MG Atorvastatin Calcium 80 mg HS PO 07/13/24 22:00 07/13/24 20:15 80 MG Nifedipine 90 mg DAILY PO 07/13/24 10:00 07/14/24 09:14 90 MG Cyclobenzaprine HCl 10 mg TID PO 07/13/24 14:00 07/14/24 05:32 10 MG Throat Lozenges 1 sabino Q2HP PRN MT 07/13/24 11:30 07/14/24 09:16 1 SAIBNO Acetaminophen/ Hydrocodone Bitart 1 tab Q4HP PRN PO 07/13/24 11:30 07/14/24 06:58 1 TAB Morphine Sulfate 4 mg Q4HPRN PRN IV 07/14/24 09:00 07/14/24 09:15 4 MG Laboratory Laboratory Tests 07/13/24 06:24 Test 07/13/24 06:24 Range/Units Serum Glucose 83 74-106 mg/dL Examination: GENERAL:Normal, HEENT:Normal (pt eating lunch, shewwing and swallowing effective to complete a taco.), NECK:Normal (xpected post operative pain and sore throat. Airway intact, able to handle secretions and eat as well as drink.), LUNGS:Normal, CVS:Normal, ABDOMEN:Normal, MSK:Normal, SKIN:Normal (left anterior neck wound well approximated with suture. Drain intact, noted to be leaking at drain site. DC drain today.), NEURO:Normal (pt has not walked as of yet, legs and feet not cramping as they were preop), :Normal Problem List/Assessment/Plan Problems: (1) Muscle spasms of neck (2) Postoperative pain after spinal surgery Assessment and Plan Drain DC today. pt tolerated well awaiting PT eval and treatment recommendations. Patient is progressing as expected and experiencing normal post operative pain. Patient is progressing to Discharge. Call with questions Tiffanie Gustafson [facility] Orthopaedic Spine Surgery nurse practitioner For Dr Cheyenne Martínez Patient was examined, chart reviewed, labs evaluated, and diagnostic studies and findings analyzed. Case was discussed with Dr. Boo Martínez who formulated the plan of care. This medical document was created using an electronic medical record system with [employer] dictation system. Although this document has been carefully reviewed, there might still be some phonetic and typographical errors. These areas are purely typographical due to imperfections of the software programs, and do not reflect any compromise in the patient's medical care. My Orders My Orders Orders - ERICA GUSTAFSON NP Procedure Category Date Status Time Morphine Sulfate PHA 07/14/24 In Process Injection 09:00 Convert To Saline DEVI 07/14/24 In Process Lock When Ta 12:35 Plan discussed with Plan discussed with: Patient, Other (Kelsey garcia [id number]) Visit Coding Surgery Date of Service if different f: Jul 14, 2024 Billing Provider: ERICA GUSTAFSON NP Surgery Visit Codes: NOT BILLABLE ERICA GUSTAFSON NP Jul 14, 2024 12:42
--- NOTE | 2024-07-14 12:52 | DVHDS2 ---
Discharge Summary Date of Admission Jul 11, 2024 at 23:14 Date of Discharge: Jul 19, 2024 Admitting Diagnosis Cervical stenosis Wounds: Left anterior neck, well approximated with sutures, drain site intact, minimal swelling noted. Labs/Diagnostic Data: Laboratory Results Test 07/13/24 06:24 07/11/24 23:59 07/11/24 23:33 07/11/24 19:13 White Blood Count 8.6 10^3/uL (4.4-10.8) Red Blood Count 4.63 10^6/uL (4.5-5.90) Hemoglobin 14.0 g/dL (13.5-17.5) Hematocrit 42.5 % (41.0-53.0) Mean Corpuscular Volume 91.9 fL (80.0-100.0) Mean Corpuscular Hemoglobin 30.2 pg (28.0-32.0) Mean Corpuscular Hemoglobin Concent 32.9 g/dL (32.0-36.0) Red Cell Distribution Width 13.3 % (11.8-14.3) Platelet Count 262 10^3/uL (140-450) Mean Platelet Volume 9.6 fL (6.9-10.8) Neutrophils (%) (Auto) 66.4 % (37.0-80.0) Lymphocytes (%) (Auto) 23.0 % (10.0-50.0) Monocytes (%) (Auto) 7.2 % (0.0-12.0) Eosinophils (%) (Auto) 2.5 % (0.0-7.0) Basophils (%) (Auto) 0.9 % (0.0-2.0) Neutrophils # (Auto) 5.7 10 ^3/uL (1.6-8.6) Lymphocytes # (Auto) 2.0 10 ^3/uL (0.4-5.4) Monocytes # (Auto) 0.6 10 ^3/uL (0-1.3) Eosinophils # (Auto) 0.2 10 ^3/uL (0-0.8) Basophils # (Auto) 0.1 10 ^3/uL (0-0.2) Nucleated Red Blood Cells 0.0 % Sodium Level 142 mmol/L (136-145) Potassium Level 3.8 mmol/L (3.5-5.1) Chloride Level 110 mmol/L (98-107) Carbon Dioxide Level 26 mmol/L (20-31) Anion Gap 6 (5-15) Blood Urea Nitrogen 9 mg/dL (9-23) Creatinine 0.76 mg/dL (0.700-1.30) Glomerular Filtration Rate Calc 100 mL/min (>90) BUN/Creatinine Ratio 11.8 (10.0-20.0) Serum Glucose 83 mg/dL (74-106) Calcium Level 9.9 mg/dL (8.7-10.4) Magnesium Level 2.0 mg/dL (1.6-2.6) Urine Color Light-yellow (Yellow) Urine Clarity Clear (Clear) Urine pH 5.5 (5.0-9.0) Urine Specific [place] 1.024 (1.001-1.035) Urine Protein Negative (Negative) Urine Ketones Negative (Negative) Urine Blood Trace /uL (Negative) Urine Nitrite Negative (Negative) Urine Bilirubin Negative (Negative) Urine Urobilinogen Normal mg/dL (Negative) Urine Leukocyte Esterase Negative /uL (Negative) Urine RBC 1 /hpf (0 - 3) Urine Microscopic WBC < 1 /HPF (0-3) Urine Squamous Epithelial Cells None seen /hpf (<5) Urine Bacteria None seen /hpf (None Seen) Urine Glucose Normal mg/dL (Normal) Total Bilirubin 0.3 mg/dL (0.2-1.0) Aspartate Amino Transferase (AST) 17 U/L (13-40) Alanine Aminotransferase (ALT) 36 U/L (7-40) Alkaline Phosphatase 74 U/L (46-116) Total Protein 6.8 g/dL (5.7-8.2) Albumin 4.4 g/dL (3.2-4.8) Prothrombin Time 10.3 sec (9.3-11.8) Prothrombin Time INR 0.97 (0.9-1.15) Activated Partial Thromboplast Time 25.6 SEC (24.5-34.5) Other Laboratory Tests 07/13/24 06:24 Brief Hx & Hospital Course: The patient arrived for a elective spine surgery with Dr. MARTÍNEZ. Surgery went as planned with no complications. After a short stay in the PACU patient was admitted to the hospital for postoperative care and pain management over the course of 2 postoperative days the patient was able to tolerate a diet, ambulate independently, the pain has been managed with oral analgesics. The surgical site is well-approximated with sutures, some residual drainage continues from drain insertion sites after removal, however it is manageable with daily wound care and dressing changes. Some improvement to preoperative symptoms of extremities, strength and motion. There is new post operative pain that is localized to the surgical site. The patient will follow-up with Dr. Martínez for wound check. Patient is waiting for physical therapy to evaluate and recommend treatment. Once he is ambulating safely we will consider discharge. The patient still has some residual soreness when he swallows. He may use Cepacol lozenges that he can obtain [id number] once every 2 hours. Spoke to patient about using ice to help soothe the discomfort. It should start diminishing over the next few days. The patient may turn the head from [id number] slowly to establish range of motion and to keep the muscles active. The patient may resume a normal previous diet, please be careful not to eat any excessive sugars and monitor your blood sugar closely. Excessively high blood sugars can lead to higher chances of getting a wound infection to your surgical site. Please call Dr. Caldera's office if you do not have an appointment already set up. Call [phone] for a appointment [id number] [place] [address], [address], [place] [address] Your prescribed oral pain medication, and muscle relaxers as well as a stool softener You may let your wound be open to air as long as there is no clothing touching the site. When you shower you may let the water run over your surgical incision however do not scrub the incision. Use a sterile [id number] to pat the incision dry. If you are going to be out in public and wearing clothes they are coming into contact with your incision you must wear a dressing. Operations or Procedures Cervical Degenerative Disk Disease and Spinal Stenosis with MRI findings showing cord signal changes Causing incapacitating neck pain, radiculopathy and myelopathy/progressive neurologic deficit Procedure: Cervical 3 to 6 anterior cervical discectomy with Cervical 3-6 foraminotomies and facetectomies to decompression the spinal canal and Cervical 4- 6 nerve roots Condition at Discharge: Good Final Diagnosis/Problems List same as pre op Discharge Disposition: Home Discharge Instruct/Medications Diet: Regular, See Comment Diet comment: soft - advance as sorness improves Activity: Light activity Activity comment: advance as tolerated New Medications: Methylprednisolone (Medrol Dosepak) 4 Mg Johnnie 4 MG PO UD, #21 TAB UAD Cyclobenzaprine HCl (Cyclobenzaprine Hydrochlo) 10 Mg Tab 10 MG PO TID for 30 Days, #90 TAB Hydrocodone-Acetaminophen (Hydrocodone Bitartrate/AC 10-325 mg) 1 Tab Tab 1 TAB PO Q4HP PRN for 10 Days, #50 TAB Continued Medications: Atorvastatin Calcium (Atorvastatin Calcium) 80 Mg Tab 1 TAB PO DAILY, #30 TAB 5 Refills Lisinopril (Lisinopril) 20 Mg Tab 1 TAB PO DAILY, #30 TAB 5 Refills Nifedipine (Nifedipine Er) 90 Mg Tab 1 TAB PO DAILY, #30 TAB 5 Refills Tamsulosin Hcl (Tamsulosin Hcl) 0.4 Mg Cap 0.4 MG PO QPM for 30 Days, MG Discharge Statement: "Patient was advised to return to the ER or call 911 if any headaches, dizziness, shortness of breath, chest pain, abdominal pain, bleeding, fevers, or worsening of medical condition. Patient was counseled about treatment plan, medications, possible side effects, patientverbalized understanding. All questions were answered to the best of my ability. This discharge took greater then 30 minutes in planning, reviewing documentation, counseling the patient, and discussing with other team members." ASSESSMENT ASSESSMENT Assessment same as pre op ERICA MONTERO NP Jul 14, 2024 12:51
--- NOTE | 2024-07-14 16:36 | DVHPN2 ---
Subjective Patient underwent spine surgery postop day one. Complaining of minimal neck pain. 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 Medications Current Medications Medications Dose Ordered Sig/Julien Route Start Time Stop Time Status Last Admin Dose Admin Ondansetron HCl 4 mg Q6HP PRN IV 07/11/24 23:15 Dextrose/Sodium Chloride 1,000 ml @ 75 mls/hr [id number] IV 07/11/24 23:30 07/14/24 05:08 75 MLS/HR Lisinopril 20 mg DAILY PO 07/13/24 10:00 07/14/24 09:13 20 MG Tamsulosin HCl 0.4 mg QPM PO 07/12/24 18:00 07/13/24 18:11 0.4 MG Atorvastatin Calcium 80 mg HS PO 07/13/24 22:00 07/13/24 20:15 80 MG Nifedipine 90 mg DAILY PO 07/13/24 10:00 07/14/24 09:14 90 MG Cyclobenzaprine HCl 10 mg TID PO 07/13/24 14:00 07/14/24 15:29 10 MG Throat Lozenges 1 sabino Q2HP PRN MT 07/13/24 11:30 07/14/24 09:16 1 SABINO Acetaminophen/ Hydrocodone Bitart 1 tab Q4HP PRN PO 07/13/24 11:30 07/14/24 06:58 1 TAB Morphine Sulfate 4 mg Q4HPRN PRN IV 07/14/24 09:00 07/14/24 15:31 4 MG Laboratory Results Laboratory Tests 07/13/24 06:24 Urinalysis Test 07/11/24 23:59 Urine Color Light-yellow (Yellow) Urine Clarity Clear (Clear) Urine pH 5.5 (5.0-9.0) Urine Specific [place] 1.024 (1.001-1.035) Urine Protein Negative (Negative) Urine Ketones Negative (Negative) Urine Blood Trace /uL (Negative) H Urine Nitrite Negative (Negative) Urine Bilirubin Negative (Negative) Urine Urobilinogen Normal mg/dL (Negative) Urine Leukocyte Esterase Negative /uL (Negative) Urine RBC 1 /hpf (0 - 3) Urine Microscopic WBC < 1 /HPF (0-3) Urine Squamous Epithelial Cells None seen /hpf (<5) Urine Bacteria None seen /hpf (None Seen) Urine Glucose Normal mg/dL (Normal) Assessment/Plan Assessment/Plan 63-year-old male with a known history of hypertension, dyslipidemia, BPH who initially presented to the hospital bed chronic neck and lower back pain, numbness in arms and hands along with the loss of strength for last six months or so. 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 Patient underwent MRI as an outpatient found to have spinal cord damage at cervical spine. 1. Acute on chronic cervical myelopathy status post anterior cervical diskectomy at C3-4/C4-5/C5-6 level 2. Cervical spine stenosis status post spine surgery intervention 3. Hypertension 4. Dyslipidemia 5. BPH -pain meds as needed, follow up spine surgery recommendations. Plan discussed with: Patient Date of Service: Jul 14, 2024 Billing Provider: ACE CERVANTES MD Common Visit Codes: NOT BILLABLE ACE CERVANTES MD Jul 14, 2024 16:36
[2024-07-15] VITALS (7 sets, daily range): BP systolic 119–158; BP diastolic 58–72; PULSE 84–99; RESP 17–19; TEMP 98.1–98.6; O2SAT 91–94
--- NOTE | 2024-07-15 16:55 | DVHPN2 ---
Subjective Patient stated that he took few steps today to the bathroom. Also still complaining of neck pain. 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 Medications Current Medications Medications Dose Ordered Sig/Julien Route Start Time Stop Time Status Last Admin Dose Admin Ondansetron HCl 4 mg Q6HP PRN IV 07/11/24 23:15 Dextrose/Sodium Chloride 1,000 ml @ 75 mls/hr [id number] IV 07/11/24 23:30 07/15/24 08:45 75 MLS/HR Lisinopril 20 mg DAILY PO 07/13/24 10:00 07/15/24 10:21 20 MG Tamsulosin HCl 0.4 mg QPM PO 07/12/24 18:00 07/14/24 18:29 0.4 MG Atorvastatin Calcium 80 mg HS PO 07/13/24 22:00 07/14/24 20:58 80 MG Nifedipine 90 mg DAILY PO 07/13/24 10:00 07/15/24 10:22 90 MG Cyclobenzaprine HCl 10 mg TID PO 07/13/24 14:00 07/15/24 14:09 10 MG Throat Lozenges 1 sabino Q2HP PRN MT 07/13/24 11:30 07/14/24 09:16 1 SABINO Acetaminophen/ Hydrocodone Bitart 1 tab Q4HP PRN PO 07/13/24 11:30 07/15/24 03:47 1 TAB Morphine Sulfate 4 mg Q4HPRN PRN IV 07/14/24 09:00 07/15/24 14:11 4 MG Laboratory Results Laboratory Tests 07/13/24 06:24 Urinalysis Test 07/11/24 23:59 Urine Color Light-yellow (Yellow) Urine Clarity Clear (Clear) Urine pH 5.5 (5.0-9.0) Urine Specific [place] 1.024 (1.001-1.035) Urine Protein Negative (Negative) Urine Ketones Negative (Negative) Urine Blood Trace /uL (Negative) H Urine Nitrite Negative (Negative) Urine Bilirubin Negative (Negative) Urine Urobilinogen Normal mg/dL (Negative) Urine Leukocyte Esterase Negative /uL (Negative) Urine RBC 1 /hpf (0 - 3) Urine Microscopic WBC < 1 /HPF (0-3) Urine Squamous Epithelial Cells None seen /hpf (<5) Urine Bacteria None seen /hpf (None Seen) Urine Glucose Normal mg/dL (Normal) Assessment/Plan Assessment/Plan 63-year-old male with a known history of hypertension, dyslipidemia, BPH who initially presented to the hospital bed chronic neck and lower back pain, numbness in arms and hands along with the loss of strength for last six months or so. 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 Patient underwent MRI as an outpatient found to have spinal cord damage at cervical spine. 1. Acute on chronic cervical myelopathy status post anterior cervical diskectomy at C3-4/C4-5/C5-6 level 2. Cervical spine stenosis status post spine surgery intervention 3. Hypertension 4. Dyslipidemia 5. BPH -pain meds as needed, follow up spine surgery recommendations. -physical therapy evaluation and treatment, discharge plan per orthopedic spine surgery Plan discussed with: Patient Date of Service: Jul 15, 2024 Billing Provider: ACE CERVANTES MD Common Visit Codes: NOT BILLABLE ACE CERVANTES MD Jul 15, 2024 16:55
[2024-07-16] VITALS (8 sets, daily range): BP systolic 111–140; BP diastolic 56–77; PULSE 83–93; RESP 16–20; TEMP 97.4–98.2; O2SAT 92–94
[2024-07-16] MEDS ORDERED: SENNA 8.6 MG TAB PO PRN (04:00)
--- NOTE | 2024-07-16 16:16 | DVHPN2 ---
Subjective Patient complaining of difficulty swallowing, swallow evaluation has been ordered. 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 Medications Current Medications Medications Dose Ordered Sig/Julien Route Start Time Stop Time Status Last Admin Dose Admin Ondansetron HCl 4 mg Q6HP PRN IV 07/11/24 23:15 Dextrose/Sodium Chloride 1,000 ml @ 75 mls/hr [id number] IV 07/11/24 23:30 07/16/24 09:27 75 MLS/HR Lisinopril 20 mg DAILY PO 07/13/24 10:00 07/16/24 09:31 20 MG Tamsulosin HCl 0.4 mg QPM PO 07/12/24 18:00 07/15/24 17:31 0.4 MG Atorvastatin Calcium 80 mg HS PO 07/13/24 22:00 07/15/24 21:10 80 MG Nifedipine 90 mg DAILY PO 07/13/24 10:00 07/16/24 09:30 90 MG Cyclobenzaprine HCl 10 mg TID PO 07/13/24 14:00 07/16/24 13:23 10 MG Throat Lozenges 1 sabino Q2HP PRN MT 07/13/24 11:30 07/14/24 09:16 1 SABINO Acetaminophen/ Hydrocodone Bitart 1 tab Q4HP PRN PO 07/13/24 11:30 07/16/24 12:15 1 TAB Morphine Sulfate 4 mg Q4HPRN PRN IV 07/14/24 09:00 07/15/24 23:18 4 MG Sennosides 8.6 mg QHSP PRN PO 07/16/24 04:00 Laboratory Results Laboratory Tests 07/13/24 06:24 Urinalysis Test 07/11/24 23:59 Urine Color Light-yellow (Yellow) Urine Clarity Clear (Clear) Urine pH 5.5 (5.0-9.0) Urine Specific [place] 1.024 (1.001-1.035) Urine Protein Negative (Negative) Urine Ketones Negative (Negative) Urine Blood Trace /uL (Negative) H Urine Nitrite Negative (Negative) Urine Bilirubin Negative (Negative) Urine Urobilinogen Normal mg/dL (Negative) Urine Leukocyte Esterase Negative /uL (Negative) Urine RBC 1 /hpf (0 - 3) Urine Microscopic WBC < 1 /HPF (0-3) Urine Squamous Epithelial Cells None seen /hpf (<5) Urine Bacteria None seen /hpf (None Seen) Urine Glucose Normal mg/dL (Normal) Assessment/Plan Assessment/Plan 63-year-old male with a known history of hypertension, dyslipidemia, BPH who initially presented to the hospital bed chronic neck and lower back pain, numbness in arms and hands along with the loss of strength for last six months or so. 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 Patient underwent MRI as an outpatient found to have spinal cord damage at cervical spine. 1. Acute on chronic cervical myelopathy status post anterior cervical diskectomy at C3-4/C4-5/C5-6 level 2. Cervical spine stenosis status post spine surgery intervention 3. Hypertension 4. Dyslipidemia 5. Difficulty in swallowing -swallow evaluation -pain meds as needed, follow up spine surgery recommendations. -physical therapy evaluation and treatment, discharge plan per orthopedic spine surgery Plan discussed with: Other My Orders Orders - ACE CERVANTES MD Procedure Category Date Status Time * Swallow Request ST 07/16/24 Transmitted 13:10 Date of Service: Jul 16, 2024 Billing Provider: ACE CERVANTES MD Common Visit Codes: NOT BILLABLE ACE CERVANTES MD Jul 16, 2024 16:16
[2024-07-17] VITALS (7 sets, daily range): BP systolic 114–134; BP diastolic 61–86; PULSE 89–98; RESP 18–20; TEMP 97.4–97.9; O2SAT 92–94
[2024-07-17] MEDS: DexAMETHasone SOD PHOS 10MG/1ML VIAL INJ IV ONE (15:14)
[2024-07-17] MEDS: NICOTINE 14 MG/24HR TOPICAL PATCH TD SCH (15:15)
[2024-07-17] MEDS ORDERED: CLINIMIX PER PHARMACY 0 ML IV SCH (15:30)
[2024-07-17] MEDS ORDERED: DexAMETHasone SOD PHOS 10MG/1ML VIAL INJ IV ONE (16:15)
[2024-07-17 16:23] LABS: Alanine Aminotransferase 21 U/L (7-40); Alkaline Phosphatase 99 U/L (46-116); Anion Gap 7 (5-15); Aspartate Aminotransferase 13 U/L (13-40); BUN/Creatinine Ratio 12.5 (10.0-20.0); Calcium 9.8 mg/dL (8.7-10.4); Carbon Dioxide 26 mmol/L (20-31); Chloride 105 mmol/L (98-107); Glucose 96 mg/dL (74-106); Magnesium 1.9 mg/dL (1.6-2.6); Potassium 4.1 mmol/L (3.5-5.1); Sodium 138 mmol/L (136-145)
[2024-07-17 16:24] LABS: Albumin 4.3 g/dL (3.2-4.8); Bilirubin, Total 0.4 mg/dL (0.2-1.0); Phosphorus 3.8 mg/dL (2.4-5.1); Total Protein 6.7 g/dL (5.7-8.2)
--- NOTE | 2024-07-17 16:25 | DVHPN2 ---
Progress Note - Surgical Date Seen: Jul 17, 2024 Post op day Post op day: 4 Subjective Patient reports: Feels better (Spinal symptoms improved), Other (sore throat and difficulty swallowing) Review of Systems: HEENT:Abnormal (diffiuty swallowing), CVS:Normal, RESPIRATORY:Normal, GI:Normal, :Normal, MSK:Normal, NEURO:Normal Objective Vital signs Vital Sign Date Time Temp Pulse Resp B/P (MAP) Pulse Ox O2 Delivery O2 Flow Rate FiO2 07/17/24 13:00 97.4 92 19 119/86 (97) 93 97.4 07/17/24 08:00 Room Air* 0 21 Total Intake and Output 07/16/24 07/16/24 07/17/24 15:00 23:00 07:00 Intake Total 100 ml 1080 ml 300 ml Output Total 400 ml 300 ml 750 ml Balance -300 ml 780 ml -450 ml Medications Current Medications Medications Dose Ordered Sig/Julien Route Start Time Stop Time Status Last Admin Dose Admin Ondansetron HCl 4 mg Q6HP PRN IV 07/11/24 23:15 Dextrose/Sodium Chloride 1,000 ml @ 75 mls/hr [id number] IV 07/11/24 23:30 07/17/24 15:14 75 MLS/HR Lisinopril 20 mg DAILY PO 07/13/24 10:00 07/16/24 09:31 20 MG Tamsulosin HCl 0.4 mg QPM PO 07/12/24 18:00 07/16/24 17:55 0.4 MG Atorvastatin Calcium 80 mg HS PO 07/13/24 22:00 07/16/24 20:47 80 MG Nifedipine 90 mg DAILY PO 07/13/24 10:00 07/16/24 09:30 90 MG Cyclobenzaprine HCl 10 mg TID PO 07/13/24 14:00 07/17/24 05:05 10 MG Throat Lozenges 1 sabino Q2HP PRN MT 07/13/24 11:30 07/14/24 09:16 1 SABINO Acetaminophen/ Hydrocodone Bitart 1 tab Q4HP PRN PO 07/13/24 11:30 07/17/24 01:01 1 TAB Morphine Sulfate 4 mg Q4HPRN PRN IV 07/14/24 09:00 07/17/24 10:30 4 MG Sennosides 8.6 mg QHSP PRN PO 07/16/24 04:00 Nicotine 1 patch DAILY TD 07/17/24 15:00 07/17/24 15:15 1 PATCH Diagnostic Test (Pha) 1 strip Q6HR 07/18/24 00:00 Insulin Human Regular FOLLOW SLIDING SCALE Q6HR SC 07/18/24 00:00 Dextrose 50 ml UD IV 07/17/24 22:00 Amino Acids 0 ml @ 0 mls/hr PER PHARMACY IV 07/17/24 15:30 Amino Acids/ Electrolytes/ Dextrose 1,000 ml @ 41 mls/hr DAILY@2200 IV 07/17/24 22:00 Laboratory Laboratory Tests 07/13/24 06:24 Test 07/17/24 15:51 Range/Units Serum Glucose Pending Examination: GENERAL:Normal, HEENT:Abnormal (difficulty swallowing not improving), LUNGS:Normal, CVS:Normal, ABDOMEN:Normal, MSK:Normal, SKIN:Normal (Left anterior neck surgical site well approximated with suture clean dry and intact no drainage noted), NEURO:Normal, :Normal Problem List/Assessment/Plan Problems: (1) Swallowing difficulty (2) Postoperative pain after spinal surgery (3) Muscle spasms of neck Assessment and Plan Having difficulty swallowing, speech therapy has completed a swallow evaluation recommended NPO, we have ordered a soft tissue neck CT scan in order of Decadron 8 mg IV x 3 doses patient is up and ambulating with his home walker. States that his legs are much better post op, some slight numbness to fingers. Patient is progressing as expected and experiencing normal post operative pain. Patient is progressing to Discharge. Call with questions Tiffanie Gustafson [facility] Orthopaedic Spine Surgery nurse practitioner For Dr Cheyenne Martínez Patient was examined, chart reviewed, labs evaluated, and diagnostic studies and findings analyzed. Case was discussed with Dr. Boo Martínez who formulated the plan of care. This medical document was created using an electronic medical record system with [employer] dictation system. Although this document has been carefully reviewed, there might still be some phonetic and typographical errors. These areas are purely typographical due to imperfections of the software programs, and do not reflect any compromise in the patient's medical care. My Orders My Orders Orders - ERICA GUSTAFSON [employer] Procedure Category Date Status Time Neck Without Contrast CT 07/17/24 Verified 16:13 Dexamethasone PHA 07/17/24 Verified Injection (Decadron 16:15 Plan discussed with Plan discussed with: Patient Visit Coding Surgery Date of Service if different f: Jul 17, 2024 Billing Provider: ERICA GUSTAFSON NP Surgery Visit Codes: NOT BILLABLE ERICA GUSTAFSON NP Jul 17, 2024 16:25
[2024-07-17 16:26] LABS: Blood Urea Nitrogen 9 mg/dL (9-23)
[2024-07-17] MEDS: THROAT LOZENGES(CEPASTAT) MT SCH (16:45)
--- NOTE | 2024-07-17 16:49 | DVHPN2 ---
Subjective Patient complaining of difficulty swallowing, swallow evaluation has been ordered. 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 Medications Current Medications Medications Dose Ordered Sig/Julien Route Start Time Stop Time Status Last Admin Dose Admin Ondansetron HCl 4 mg Q6HP PRN IV 07/11/24 23:15 Dextrose/Sodium Chloride 1,000 ml @ 75 mls/hr [id number] IV 07/11/24 23:30 07/17/24 15:14 75 MLS/HR Lisinopril 20 mg DAILY PO 07/13/24 10:00 07/16/24 09:31 20 MG Tamsulosin HCl 0.4 mg QPM PO 07/12/24 18:00 07/16/24 17:55 0.4 MG Atorvastatin Calcium 80 mg HS PO 07/13/24 22:00 07/16/24 20:47 80 MG Nifedipine 90 mg DAILY PO 07/13/24 10:00 07/16/24 09:30 90 MG Cyclobenzaprine HCl 10 mg TID PO 07/13/24 14:00 07/17/24 05:05 10 MG Acetaminophen/ Hydrocodone Bitart 1 tab Q4HP PRN PO 07/13/24 11:30 07/17/24 01:01 1 TAB Morphine Sulfate 4 mg Q4HPRN PRN IV 07/14/24 09:00 07/17/24 10:30 4 MG Sennosides 8.6 mg QHSP PRN PO 07/16/24 04:00 Nicotine 1 patch DAILY TD 07/17/24 15:00 07/17/24 15:15 1 PATCH Diagnostic Test (Pha) 1 strip Q6HR 07/18/24 00:00 Insulin Human Regular FOLLOW SLIDING SCALE Q6HR SC 07/18/24 00:00 Dextrose 50 ml UD IV 07/17/24 22:00 Amino Acids 0 ml @ 0 mls/hr PER PHARMACY IV 07/17/24 15:30 Amino Acids/ Electrolytes/ Dextrose 1,000 ml @ 41 mls/hr DAILY@2200 IV 07/17/24 22:00 Throat Lozenges 1 reuben Q2HP MT 07/17/24 16:45 Laboratory Results Laboratory Tests 07/13/24 06:24 07/17/24 15:51 Chemistry Test 07/17/24 15:51 Albumin 4.3 g/dL (3.2-4.8) Calcium Level 9.8 mg/dL (8.7-10.4) Magnesium Level 1.9 mg/dL (1.6-2.6) Phosphorus Level 3.8 mg/dL (2.4-5.1) Total Protein 6.7 g/dL (5.7-8.2) LFT Test 07/17/24 15:51 Alanine Aminotransferase (ALT) 21 U/L (7-40) Alkaline Phosphatase 99 U/L (46-116) Aspartate Amino Transferase (AST) 13 U/L (13-40) Total Bilirubin 0.4 mg/dL (0.2-1.0) Urinalysis Test 07/11/24 23:59 Urine Color Light-yellow (Yellow) Urine Clarity Clear (Clear) Urine pH 5.5 (5.0-9.0) Urine Specific [place] 1.024 (1.001-1.035) Urine Protein Negative (Negative) Urine Ketones Negative (Negative) Urine Blood Trace /uL (Negative) H Urine Nitrite Negative (Negative) Urine Bilirubin Negative (Negative) Urine Urobilinogen Normal mg/dL (Negative) Urine Leukocyte Esterase Negative /uL (Negative) Urine RBC 1 /hpf (0 - 3) Urine Microscopic WBC < 1 /HPF (0-3) Urine Squamous Epithelial Cells None seen /hpf (<5) Urine Bacteria None seen /hpf (None Seen) Urine Glucose Normal mg/dL (Normal) Assessment/Plan Assessment/Plan 63-year-old male with a known history of hypertension, dyslipidemia, BPH who initially presented to the hospital bed chronic neck and lower back pain, numbness in arms and hands along with the loss of strength for last six months or so. 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 Patient underwent MRI as an outpatient found to have spinal cord damage at cervical spine. 1. Acute on chronic cervical myelopathy status post anterior cervical diskectomy at C3-4/C4-5/C5-6 level 2. Cervical spine stenosis status post spine surgery intervention 3. Hypertension 4. Dyslipidemia 5. Difficulty in swallowing -swallow evaluation -pain meds as needed, follow up spine surgery recommendations. -physical therapy evaluation and treatment, discharge plan per orthopedic spine surgery Plan discussed with: Patient My Orders Orders - ACE CERVANTES MD Procedure Category Date Status Time Npo (Nothing By DIET 07/17/24 Transmitted Mouth) Diet Breakfast Clinimix Per Pharmacy DEVI 07/17/24 In Process 14:44 Nicotine 14mg/24hr PHA 07/17/24 In Process (Nicoderm 14mg/24hr) 15:00 Glucose Blood PHA 07/18/24 In Process (Accu-Chek Comfort 00:00 Insulin R (Human) PHA 07/18/24 In Process (Insulin R) 00:00 Dextrose 50% Syringe PHA 07/17/24 In Process 22:00 Clinimix Per Pharmacy PHA 07/17/24 In Process 15:30 Amino Acid Infusion PHA 07/17/24 In Process In D10w (Clinimix 4. 22:00 Date of Service: Jul 17, 2024 Billing Provider: ACE CERVANTES MD Common Visit Codes: NOT BILLABLE ACE CERVANTES MD Jul 17, 2024 16:49
[2024-07-17] MEDS ORDERED: DEXTROSE (50%) 50ML SYRG IV SCH (22:00)
[2024-07-17] MEDS: AMINO ACID INFUSION IN D10W 1,000 ML IV SCH (22:03)
[2024-07-17] MEDS: ACCU-CHEK COMFORT CURVE STRIP VI SCH (23:55)
[2024-07-17] MEDS: InsuLIN REG 1unit/0.01ml Soln (100units/ml) SC SCH (23:55)
[2024-07-18] VITALS (7 sets, daily range): BP systolic 125–142; BP diastolic 68–84; PULSE 86–98; RESP 17–19; TEMP 97.4–98.4; O2SAT 92–97
--- NOTE | 2024-07-18 06:54 | DVH ---
EXAM: CT NECK WITHOUT CONTRAST INDICATION: Post operative difficulty swallowing. Exam Date: 07/18/2024 06:19 AM COMPARISON: None TECHNIQUE: CT of the neck without intravenous contrast. Coronal and sagittal reformatted images are provided. RADIATION DOSE: CTDIvol: 35.33 mGy, DLP: 897.8 mGy*cm FINDINGS: The patient is status post anterior cervical discectomy and fusion at C5-C6 with interbody prostheses . The hardware is well aligned and intact. No acute osseous abnormality. There is marked prevertebral soft tissue thickening extending from C2 to C6 greatest at C6 measuring up to 2.0 cm in maximum thickness. There are small locules of gas in the prevertebral soft tissues. There is prevertebral fluid at C2-C3, C3-C4 and C4-C5. Prevertebral swelling causes narrowing of the esophagus and the airway at the C3-C4 level. Multilevel facet arthropathy. There is soft tissue stranding and soft tissue gas in the left neck at the level of the hyoid bone. S urgical clips are present in the left neck with the soft tissue stranding and gas. The bilateral submandibular and parotid glands are unremarkable. There are shotty bilateral cervical lymph nodes at all [place] stations. The lung apices are clear. IMPRESSION: 1. Prevertebral fluid collection and swelling with gas at C2-C6. This may reflect postoperative tyson ge however infection is not excluded. Prevertebral fluid collection, swelling and gas contribute to m oderate narrowing of the esophagus and airway at the operative site. 2. Status post ACDF from C2-C6 with intact hardware and good alignment.
--- NOTE | 2024-07-18 10:53 | DVHPN2 ---
Progress Note - Surgical Date Seen: Jul 18, 2024 Post op day Post op day: 5 Subjective Patient reports: No new complaints, Feels better, Other (Swallowing has inproved tolerating apple sauce) Review of Systems: HEENT:Normal, CVS:Normal, RESPIRATORY:Normal, GI:Normal, :Normal, MSK:Normal, NEURO:Normal (omproving preoperative symptoms) Objective Vital signs Vital Sign Date Time Temp Pulse Resp B/P (MAP) Pulse Ox O2 Delivery O2 Flow Rate FiO2 07/18/24 10:21 140/77 07/18/24 08:21 98.4 87 17 92 98.4 07/17/24 20:00 Room Air* 0 21 Total Intake and Output 07/17/24 07/17/24 07/18/24 14:59 22:59 06:59 Intake Total 1050 ml 928 ml Output Total 400 ml 925 ml Balance 650 ml 3 ml Medications Current Medications Medications Dose Ordered Sig/Julien Route Start Time Stop Time Status Last Admin Dose Admin Ondansetron HCl 4 mg Q6HP PRN IV 07/11/24 23:15 Dextrose/Sodium Chloride 1,000 ml @ 75 mls/hr [id number] IV 07/11/24 23:30 07/18/24 05:59 75 MLS/HR Lisinopril 20 mg DAILY PO 07/13/24 10:00 07/18/24 10:21 20 MG Tamsulosin HCl 0.4 mg QPM PO 07/12/24 18:00 07/16/24 17:55 0.4 MG Atorvastatin Calcium 80 mg HS PO 07/13/24 22:00 07/17/24 22:04 80 MG Nifedipine 90 mg DAILY PO 07/13/24 10:00 07/18/24 10:21 90 MG Cyclobenzaprine HCl 10 mg TID PO 07/13/24 14:00 07/18/24 05:59 10 MG Acetaminophen/ Hydrocodone Bitart 1 tab Q4HP PRN PO 07/13/24 11:30 07/18/24 07:38 1 TAB Morphine Sulfate 4 mg Q4HPRN PRN IV 07/14/24 09:00 07/17/24 17:11 4 MG Sennosides 8.6 mg QHSP PRN PO 07/16/24 04:00 Nicotine 1 patch DAILY TD 07/17/24 15:00 07/18/24 10:24 1 PATCH Diagnostic Test (Pha) 1 strip Q6HR 07/18/24 00:00 07/18/24 05:59 1 STRIP Insulin Human Regular FOLLOW SLIDING SCALE Q6HR SC 07/18/24 00:00 Dextrose 50 ml UD IV 07/17/24 22:00 Amino Acids 0 ml @ 0 mls/hr PER PHARMACY IV 07/17/24 15:30 Amino Acids/ Electrolytes/ Dextrose 1,000 ml @ 41 mls/hr DAILY@2200 IV 07/17/24 22:00 07/17/24 22:03 41 MLS/HR Throat Lozenges 1 sabino Q2HP MT 07/17/24 16:45 07/18/24 10:20 1 SABINO Laboratory Laboratory Tests 07/17/24 15:51 07/13/24 06:24 Test 07/17/24 15:51 Range/Units Serum Glucose 96 74-106 mg/dL Examination: GENERAL:Normal, HEENT:Normal (left anterior neck surgical site well approximated, no reports of leaking), NECK:Normal (as expected post operativly, no swelling noted), LUNGS:Normal, CVS:Normal, ABDOMEN:Normal, MSK:Normal, SKIN:Normal, NEURO:Normal, :Normal Problem List/Assessment/Plan Problems: (1) Swallowing difficulty (2) Postoperative pain after spinal surgery (3) Muscle spasms of neck Assessment and Plan Having difficulty swallowing, speech therapy has completed a swallow evaluation recommended NPO yesterday-advancing today. Soft tissue neck CT scan reviewed by Dr Martínez, hardware as expected. Also presents with expected postoperative fuild and swelling. Patient seen by Dr Martínez, able to tolerate apple sauce, no swallowing problems, managing secretions, airway patent, no trouble speaking. patient is up and ambulating with his home walker. States that his legs are much better post op, some slight numbness to fingers. Patient is progressing as expected and experiencing normal post operative pain. Patient is progressing to Discharge. Possible tomorrow. Call with questions Tiffanie Gustafson [facility] Orthopaedic Spine Surgery nurse practitioner For Dr Cheyenne Martínez Patient was examined, chart reviewed, labs evaluated, and diagnostic studies and findings analyzed. Case was discussed with Dr. Boo Martínez who formulated the plan of care. This medical document was created using an electronic medical record system with [employer] dictation system. Although this document has been carefully reviewed, there might still be some phonetic and typographical errors. These areas are purely typographical due to imperfections of the software programs, and do not reflect any compromise in the patient's medical care. My Orders My Orders Orders - ERICA GUSTAFSON NP Procedure Category Date Status Time Neck Without Contrast CT 07/17/24 Resulted 16:13 Throat Lozenges PHA 07/17/24 In Process (Cepastat Lozenges) 16:45 Complete Blood Count LAB 07/18/24 Logged 10:41 Plan discussed with Plan discussed with: Patient (DR Martínez spoke to patient and ar bedside), Other Visit Coding Surgery Date of Service if different f: Jul 18, 2024 Billing Provider: ERICA GUSTAFSON NP Surgery Visit Codes: NOT BILLABLE ERICA GUSTAFSON NP Jul 18, 2024 10:53
[2024-07-18 12:22] LABS: Basophils # (auto) 0.1 10 ^3/uL (0-0.2); Basophils % (auto) 0.7 % (0.0-2.0); Eosinophils # (auto) 0 10 ^3/uL (0-0.8); Eosinophils % (auto) 0.3 % (0.0-7.0); Hematocrit 41.5 % (41.0-53.0); Lymphocytes % (auto) 13.8 % (10.0-50.0); Mean Corpuscular Hemoglobin 30.4 pg (28.0-32.0); Mean Corpuscular Hgb Conc. 33.7 g/dL (32.0-36.0); Mean Corpuscular Volume 90.2 fL (80.0-100.0); Monocytes # (auto) 1.3 10 ^3/uL (0-1.3); Monocytes % (auto) 9.3 % (0.0-12.0); Neutrophils % (auto) 75.9 % (37.0-80.0); Platelet Count (auto) 290 10^3/uL (140-450); White Blood Cell 14.5 10^3/uL (4.4-10.8)
[2024-07-18 12:56] LABS: Alanine Aminotransferase 34 U/L (7-40); Albumin 4.3 g/dL (3.2-4.8); Alkaline Phosphatase 109 U/L (46-116); Anion Gap 8 (5-15); Aspartate Aminotransferase 30 U/L (13-40); BUN/Creatinine Ratio 17.4 (10.0-20.0); Blood Urea Nitrogen 12 mg/dL (9-23); Calcium 10.3 mg/dL (8.7-10.4); Carbon Dioxide 25 mmol/L (20-31); Chloride 106 mmol/L (98-107); Glucose 83 mg/dL (74-106); Magnesium 2.2 mg/dL (1.6-2.6); Sodium 139 mmol/L (136-145)
[2024-07-18 12:57] LABS: Bilirubin, Total 0.4 mg/dL (0.2-1.0); Total Protein 7.1 g/dL (5.7-8.2)
[2024-07-18] MEDS: DexAMETHasone SOD PHOS 10MG/1ML VIAL INJ IV ONE (14:57)
--- NOTE | 2024-07-18 17:11 | DVHPN2 ---
Subjective Patient was parts swallow evaluation currently tolerating diet, feeling much better, continue dexamethasone IV. 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 Medications Current Medications Medications Dose Ordered Sig/Julien Route Start Time Stop Time Status Last Admin Dose Admin Ondansetron HCl 4 mg Q6HP PRN IV 07/11/24 23:15 Dextrose/Sodium Chloride 1,000 ml @ 75 mls/hr [id number] IV 07/11/24 23:30 07/18/24 05:59 75 MLS/HR Lisinopril 20 mg DAILY PO 07/13/24 10:00 07/18/24 10:21 20 MG Tamsulosin HCl 0.4 mg QPM PO 07/12/24 18:00 07/16/24 17:55 0.4 MG Atorvastatin Calcium 80 mg HS PO 07/13/24 22:00 07/17/24 22:04 80 MG Nifedipine 90 mg DAILY PO 07/13/24 10:00 07/18/24 10:21 90 MG Cyclobenzaprine HCl 10 mg TID PO 07/13/24 14:00 07/18/24 13:55 10 MG Acetaminophen/ Hydrocodone Bitart 1 tab Q4HP PRN PO 07/13/24 11:30 07/18/24 07:38 1 TAB Morphine Sulfate 4 mg Q4HPRN PRN IV 07/14/24 09:00 07/17/24 17:11 4 MG Sennosides 8.6 mg QHSP PRN PO 07/16/24 04:00 Nicotine 1 patch DAILY TD 07/17/24 15:00 07/18/24 10:24 1 PATCH Diagnostic Test (Pha) 1 strip Q6HR 07/18/24 00:00 07/18/24 11:41 1 STRIP Insulin Human Regular FOLLOW SLIDING SCALE Q6HR SC 07/18/24 00:00 Dextrose 50 ml UD IV 07/17/24 22:00 Amino Acids 0 ml @ 0 mls/hr PER PHARMACY IV 07/17/24 15:30 Amino Acids/ Electrolytes/ Dextrose 1,000 ml @ 41 mls/hr DAILY@2200 IV 07/17/24 22:00 07/17/24 22:03 41 MLS/HR Throat Lozenges 1 sabino Q2HP MT 07/17/24 16:45 07/18/24 16:25 1 SABINO Dexamethasone Sodium Phosphate 10 mg DAILY IV 07/19/24 10:00 07/20/24 12:00 Laboratory Results Laboratory Tests 07/18/24 11:40 Chemistry Test 07/18/24 11:40 Albumin 4.3 g/dL (3.2-4.8) Calcium Level 10.3 mg/dL (8.7-10.4) Magnesium Level 2.2 mg/dL (1.6-2.6) Phosphorus Level 3.0 mg/dL (2.4-5.1) Total Protein 7.1 g/dL (5.7-8.2) LFT Test 07/18/24 11:40 Alanine Aminotransferase (ALT) 34 U/L (7-40) Alkaline Phosphatase 109 U/L (46-116) Aspartate Amino Transferase (AST) 30 U/L (13-40) Total Bilirubin 0.4 mg/dL (0.2-1.0) Urinalysis Test 07/11/24 23:59 Urine Color Light-yellow (Yellow) Urine Clarity Clear (Clear) Urine pH 5.5 (5.0-9.0) Urine Specific [place] 1.024 (1.001-1.035) Urine Protein Negative (Negative) Urine Ketones Negative (Negative) Urine Blood Trace /uL (Negative) H Urine Nitrite Negative (Negative) Urine Bilirubin Negative (Negative) Urine Urobilinogen Normal mg/dL (Negative) Urine Leukocyte Esterase Negative /uL (Negative) Urine RBC 1 /hpf (0 - 3) Urine Microscopic WBC < 1 /HPF (0-3) Urine Squamous Epithelial Cells None seen /hpf (<5) Urine Bacteria None seen /hpf (None Seen) Urine Glucose Normal mg/dL (Normal) Assessment/Plan Assessment/Plan 63-year-old male with a known history of hypertension, dyslipidemia, BPH who initially presented to the hospital bed chronic neck and lower back pain, numbness in arms and hands along with the loss of strength for last six months or so. 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 Patient underwent MRI as an outpatient found to have spinal cord damage at cervical spine. 1. Acute on chronic cervical myelopathy status post anterior cervical diskectomy at C3-4/C4-5/C5-6 level 2. Cervical spine stenosis status post spine surgery intervention 3. Hypertension 4. Dyslipidemia 5. Difficulty in swallowing, currently tolerating diet -repeat swallow evaluation follow up, continue dexamethasone IV -pain meds as needed, follow up spine surgery recommendations. -physical therapy evaluation and treatment, discharge plan per orthopedic spine surgery Plan discussed with: Patient My Orders Orders - ACE CERVANTES MD Procedure Category Date Status Time Comprehensive LAB 07/19/24 Verified Metabolic Panel 04:00 Magnesium LAB 07/19/24 Verified 04:00 Phosphorus LAB 07/19/24 Verified 04:00 Clinimix Per Pharmacy DEVI 07/18/24 In Process 22:00 Mechanical Soft Diet DIET 07/18/24 Transmitted Dinner Date of Service: Jul 18, 2024 Billing Provider: ACE CERVANTES MD Common Visit Codes: NOT BILLABLE ACE CERVANTES MD Jul 18, 2024 17:11
[2024-07-19] VITALS (7 sets, daily range): BP systolic 111–148; BP diastolic 52–79; PULSE 71–96; RESP 16–19; TEMP 97.5–98; O2SAT 96–98
[2024-07-19 07:39] LABS: Albumin 4.8 g/dL (3.2-4.8); Anion Gap 10 (5-15); BUN/Creatinine Ratio 21.2 (10.0-20.0); Blood Urea Nitrogen 14 mg/dL (9-23); Calcium 10.2 mg/dL (8.7-10.4); Carbon Dioxide 25 mmol/L (20-31); Chloride 106 mmol/L (98-107); Glucose 87 mg/dL (74-106); Potassium 3.9 mmol/L (3.5-5.1); Sodium 141 mmol/L (136-145)
[2024-07-19 07:40] LABS: Phosphorus 3.3 mg/dL (2.4-5.1); Total Protein 7.3 g/dL (5.7-8.2)
[2024-07-19 07:52] LABS: Alanine Aminotransferase 61 U/L (7-40); Alkaline Phosphatase 119 U/L (46-116); Aspartate Aminotransferase 40 U/L (13-40); Bilirubin, Total 0.2 mg/dL (0.2-1.0)
[2024-07-19] MEDS: DexAMETHasone SOD PHOS 10MG/1ML VIAL INJ IV SCH (09:21)
--- NOTE | 2024-07-19 12:15 | DVHPN2 ---
Progress Note - Surgical Date Seen: Jul 19, 2024 Post op day Post op day: 8 Subjective Patient reports: No new complaints Review of Systems: HEENT:Normal, CVS:Normal, RESPIRATORY:Normal, GI:Normal, :Normal, MSK:Normal, NEURO:Normal Objective Vital signs Vital Sign Date Time Temp Pulse Resp B/P (MAP) Pulse Ox O2 Delivery O2 Flow Rate FiO2 07/19/24 11:36 98.0 74 16 135/60 (85) 97 98.0 07/18/24 20:00 Room Air* 0 21 Total Intake and Output 07/18/24 07/18/24 07/19/24 15:00 23:00 07:00 Intake Total 400 ml 1378 ml Balance 400 ml 1378 ml Medications Current Medications Medications Dose Ordered Sig/Julien Route Start Time Stop Time Status Last Admin Dose Admin Ondansetron HCl 4 mg Q6HP PRN IV 07/11/24 23:15 Dextrose/Sodium Chloride 1,000 ml @ 75 mls/hr [id number] IV 07/11/24 23:30 07/19/24 09:30 75 MLS/HR Lisinopril 20 mg DAILY PO 07/13/24 10:00 07/19/24 09:22 20 MG Tamsulosin HCl 0.4 mg QPM PO 07/12/24 18:00 07/18/24 18:09 0.4 MG Atorvastatin Calcium 80 mg HS PO 07/13/24 22:00 07/18/24 21:38 80 MG Nifedipine 90 mg DAILY PO 07/13/24 10:00 07/19/24 09:22 90 MG Cyclobenzaprine HCl 10 mg TID PO 07/13/24 14:00 07/19/24 05:22 10 MG Acetaminophen/ Hydrocodone Bitart 1 tab Q4HP PRN PO 07/13/24 11:30 07/18/24 20:42 1 TAB Morphine Sulfate 4 mg Q4HPRN PRN IV 07/14/24 09:00 07/17/24 17:11 4 MG Sennosides 8.6 mg QHSP PRN PO 07/16/24 04:00 Nicotine 1 patch DAILY TD 07/17/24 15:00 07/19/24 09:23 1 PATCH Diagnostic Test (Pha) 1 strip Q6HR 07/18/24 00:00 07/19/24 12:00 1 STRIP Insulin Human Regular FOLLOW SLIDING SCALE Q6HR SC 07/18/24 00:00 07/18/24 23:52 2 UNITS Dextrose 50 ml UD IV 07/17/24 22:00 Amino Acids 0 ml @ 0 mls/hr PER PHARMACY IV 07/17/24 15:30 Amino Acids/ Electrolytes/ Dextrose 1,000 ml @ 41 mls/hr DAILY@2200 IV 07/17/24 22:00 07/18/24 21:38 41 MLS/HR Throat Lozenges 1 sabino Q2HP MT 07/17/24 16:45 07/19/24 11:07 1 SABINO Dexamethasone Sodium Phosphate 10 mg DAILY IV 07/19/24 10:00 07/20/24 12:00 07/19/24 09:21 10 MG Laboratory Laboratory Tests 07/19/24 06:34 07/18/24 11:40 Test 07/19/24 06:34 Range/Units Serum Glucose 87 74-106 mg/dL Examination: GENERAL:Normal, HEENT:Normal (Greatly improved voice and swallowing.), NECK:Normal (No swelling to neck at surgical site. Sutures intact edges well approximated. No ecchymosis noted no drainage no redness), LUNGS:Normal, CVS:Normal, ABDOMEN:Normal, MSK:Normal, SKIN:Normal, NEURO:Normal (Improvement noted in pre-surgical symptoms), :Normal Problem List/Assessment/Plan Problems: (1) Postoperative pain after spinal surgery (2) Muscle spasms of neck (3) Swallowing difficulty Assessment and Plan Improvement in difficulty swallowing, voice is almost back to normal per patient's report. No further swallowing problems, managing secretions, airway patent, no trouble speaking. patient is up and ambulating with his home walker. States that his legs are much better post op, improvement in numbness to fingers. Patient is progressing as expected and experiencing normal post operative pain. No Barriers to discharge from a spine surgery perspective Call with questions Tiffanie Gustafson [facility]- Orthopaedic Spine Surgery nurse practitioner For Dr Cheyenne Martínez Patient was examined, chart reviewed, labs evaluated, and diagnostic studies and findings analyzed. Case was discussed with Dr. Boo Martínez who formulated the plan of care. This medical document was created using an electronic medical record system with [employer] dictation system. Although this document has been carefully reviewed, there might still be some phonetic and typographical errors. These areas are purely typographical due to imperfections of the software programs, and do not reflect any compromise in the patient's medical care. Plan discussed with Plan discussed with: Patient, Other (Kamryn extension [phone]) Visit Coding Surgery Date of Service if different f: Jul 19, 2024 Billing Provider: ERICA GUSTAFSON NP Surgery Visit Codes: NOT BILLABLE ERICA GUSTAFSON NP Jul 19, 2024 12:14
[2024-07-19] MEDS ORDERED: HYDR-4798 PO (14:12)
[2024-07-19] MEDS ORDERED: CYCL-611 PO (14:12)
[2024-07-19] MEDS ORDERED: METH4PAK PO (14:12)
--- NOTE | 2024-07-19 14:15 | DVHDS2 ---
ASSESSMENT ASSESSMENT Hospital Course The patient arrived for a elective spine surgery with Dr. MARTÍNEZ. Surgery went as planned with no complications. After a short stay in the PACU patient was admitted to the hospital for postoperative care and pain management over the course of 2 postoperative days the patient was able to tolerate a diet, ambulate independently, the pain has been managed with oral analgesics. The surgical site is well-approximated with sutures, some residual drainage continues from drain insertion sites after removal, however it is manageable with daily wound care and dressing changes. Some improvement to preoperative symptoms of extremities, strength and motion. There is new post operative pain that is localized to the surgical site. The patient will follow-up with Dr. Martínez for wound check. Patient is waiting for physical therapy to evaluate and recommend treatment. Once he is ambulating safely we will consider discharge. The patient still has some residual soreness when he swallows. He may use Cepacol lozenges that he can obtain [id number] once every 2 hours. Spoke to patient about using ice to help soothe the discomfort. It should start diminishing over the next few days. The patient may turn the head from [id number] slowly to establish range of motion and to keep the muscles active. The patient may resume a normal previous diet, please be careful not to eat any excessive sugars and monitor your blood sugar closely. Excessively high blood sugars can lead to higher chances of getting a wound infection to your surgical site. Please call Dr. Caldera's office if you do not have an appointment already set up. Call [phone] for a appointment [address] [facility], [place] [id number] Your prescribed oral pain medication, and muscle relaxers as well as a stool softener You may let your wound be open to air as long as there is no clothing touching the site. When you shower you may let the water run over your surgical incision however do not scrub the incision. Use a sterile 4x4s to pat the incision dry. If you are going to be out in public and wearing clothes they are coming into contact with your incision you must wear a dressing. Assessment same as pre op Postoperative pain, expected Problems: (1) Muscle spasms of neck Assessments: Told when medicated (2) Swallowing difficulty Assessments: Improving greatly, patient's voice is back to normal discharging patient with Medrol Dosepak (3) Postoperative pain after spinal surgery Assessments: Pain is controllable with oral pain medications. Pain is improving ERICA MONTERO NP Jul 19, 2024 14:15
--- NOTE | 2024-07-19 14:43 | DVHPN2 ---
Subjective Patient currently back to baseline and tolerating food. Possible discharge per spine surgery today. 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 Medications Current Medications Medications Dose Ordered Sig/Julien Route Start Time Stop Time Status Last Admin Dose Admin Ondansetron HCl 4 mg Q6HP PRN IV 07/11/24 23:15 Dextrose/Sodium Chloride 1,000 ml @ 75 mls/hr [id number] IV 07/11/24 23:30 07/19/24 09:30 75 MLS/HR Lisinopril 20 mg DAILY PO 07/13/24 10:00 07/19/24 09:22 20 MG Tamsulosin HCl 0.4 mg QPM PO 07/12/24 18:00 07/18/24 18:09 0.4 MG Atorvastatin Calcium 80 mg HS PO 07/13/24 22:00 07/18/24 21:38 80 MG Nifedipine 90 mg DAILY PO 07/13/24 10:00 07/19/24 09:22 90 MG Cyclobenzaprine HCl 10 mg TID PO 07/13/24 14:00 07/19/24 05:22 10 MG Acetaminophen/ Hydrocodone Bitart 1 tab Q4HP PRN PO 07/13/24 11:30 07/18/24 20:42 1 TAB Morphine Sulfate 4 mg Q4HPRN PRN IV 07/14/24 09:00 07/17/24 17:11 4 MG Sennosides 8.6 mg QHSP PRN PO 07/16/24 04:00 Nicotine 1 patch DAILY TD 07/17/24 15:00 07/19/24 09:23 1 PATCH Diagnostic Test (Pha) 1 strip Q6HR 07/18/24 00:00 07/19/24 12:00 1 STRIP Insulin Human Regular FOLLOW SLIDING SCALE Q6HR SC 07/18/24 00:00 07/18/24 23:52 2 UNITS Dextrose 50 ml UD IV 07/17/24 22:00 Amino Acids 0 ml @ 0 mls/hr PER PHARMACY IV 07/17/24 15:30 Amino Acids/ Electrolytes/ Dextrose 1,000 ml @ 41 mls/hr DAILY@2200 IV 07/17/24 22:00 07/18/24 21:38 41 MLS/HR Throat Lozenges 1 sabino Q2HP MT 07/17/24 16:45 07/19/24 12:30 1 SABINO Dexamethasone Sodium Phosphate 10 mg DAILY IV 07/19/24 10:00 07/20/24 12:00 07/19/24 09:21 10 MG Laboratory Results Laboratory Tests 07/18/24 11:40 07/19/24 06:34 Chemistry Test 07/19/24 06:34 Albumin 4.8 g/dL (3.2-4.8) Calcium Level 10.2 mg/dL (8.7-10.4) Magnesium Level 2.0 mg/dL (1.6-2.6) Phosphorus Level 3.3 mg/dL (2.4-5.1) Total Protein 7.3 g/dL (5.7-8.2) LFT Test 07/19/24 06:34 Alanine Aminotransferase (ALT) 61 U/L (7-40) H Alkaline Phosphatase 119 U/L (46-116) H Aspartate Amino Transferase (AST) 40 U/L (13-40) Total Bilirubin 0.2 mg/dL (0.2-1.0) Urinalysis Test 07/11/24 23:59 Urine Color Light-yellow (Yellow) Urine Clarity Clear (Clear) Urine pH 5.5 (5.0-9.0) Urine Specific [place] 1.024 (1.001-1.035) Urine Protein Negative (Negative) Urine Ketones Negative (Negative) Urine Blood Trace /uL (Negative) H Urine Nitrite Negative (Negative) Urine Bilirubin Negative (Negative) Urine Urobilinogen Normal mg/dL (Negative) Urine Leukocyte Esterase Negative /uL (Negative) Urine RBC 1 /hpf (0 - 3) Urine Microscopic WBC < 1 /HPF (0-3) Urine Squamous Epithelial Cells None seen /hpf (<5) Urine Bacteria None seen /hpf (None Seen) Urine Glucose Normal mg/dL (Normal) Assessment/Plan Assessment/Plan 63-year-old male with a known history of hypertension, dyslipidemia, BPH who initially presented to the hospital bed chronic neck and lower back pain, numbness in arms and hands along with the loss of strength for last six months or so. 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 Patient underwent MRI as an outpatient found to have spinal cord damage at cervical spine. 1. Acute on chronic cervical myelopathy status post anterior cervical diskectomy at C3-4/C4-5/C5-6 level 2. Cervical spine stenosis status post spine surgery intervention 3. Hypertension 4. Dyslipidemia 5. Difficulty in swallowing, currently tolerating diet -diet as tolerated, pain meds as needed -physical therapy evaluation and treatment, discharge plan per orthopedic spine surgery Plan discussed with: Patient My Orders Orders - ACE CERVANTES MD Procedure Category Date Status Time Mechanical Soft Diet DIET 07/18/24 Transmitted Dinner Date of Service: Jul 19, 2024 Billing Provider: ACE CERVANTES MD Common Visit Codes: NOT BILLABLE ACE CERVANTES MD Jul 19, 2024 14:43
--- NOTE | 2024-07-19 21:43 | DVHPN2 ---
Progress Note - Dictate Date Seen: Jul 19, 2024 Medical Necessity Reason Pt with a Central, PICC or Fol: No Subjective Patient seen and examined at bedside. Breathing comfortably on room air. Overnight events reviewed. vital signs Vital Sign Date Time Temp Pulse Resp B/P (MAP) Pulse Ox O2 Delivery O2 Flow Rate FiO2 07/19/24 16:45 97.7 82 16 132/70 (90) 98 97.7 07/19/24 08:00 Room Air* 0 21 Total Intake and Output 07/18/24 07/18/24 07/19/24 15:00 23:00 07:00 Intake Total 400 ml 1378 ml Balance 400 ml 1378 ml objective Gen.: Patient lying in bed in no apparent distress. Breathing on room air. Head: Normocephalic, atraumatic. Eyes: EOMI/PERRLA. Ears: Normal hearing. Normal anatomy. Neck/trachea: Trachea midline, supple. Nose: Normal external anatomy. Mouth: Moist mucous membranes. Chest: Decreased air entry bilaterally. No wheezing or rhonchi. Cardiovascular: Positive S1, positive S2. Regular rate and rhythm. Abdomen: Positive bowel sounds in all 4 quadrants. Soft, non-tender, non- distended. : Deferred. Rectal: Deferred. Skin: Warm, dry. Intact. Extremities: 2+ radial pulses bilaterally. No lower extremity edema. Neuro: Awake, alert, oriented x3. No gross motor or sensory deficits. Cranial nerves II through XII intact. Gait not assessed. laboratory and microbiology Laboratory Tests 07/19/24 06:34 07/18/24 11:40 Test 07/19/24 06:34 Range/Units Serum Glucose 87 74-106 mg/dL Assessment/Plan Impression: Stridor/difficulty swallowing, resolved Nicotine dependence Leukocytosis Acute on chronic cervical myelopathy, s/p anterior cervical diskectomy at C3-C6 Events: Breathing on room air No respiratory distress. Repeat swallow eval passed. Tolerating diet Continue steroids Nicotine patch Spine Surgery recs appreciated. Patient is stable for discharge from the pulmonary standpoint. Disposition per hospitalist. Labs and imaging reviewed. Rest of plan as noted below. Plan: On room air Supplemental oxygen PRN Titrate to keep O2 sats above 92%. CT neck w/o contrast notable for: Prevertebral fluid collection and swelling with gas at C2-C6. Prevertebral fluid collection, swelling and gas contribute to moderate narrowing of the esophagus and airway at the operative site. Status post ACDF from C2-C6 with intact hardware and good alignment Steroids, continue Decadron Spine Surgery recommendations appreciated Monitor renal function. Monitor electrolytes. Supplement as necessary. Tolerating diet Patient is stable for discharge from the pulmonary standpoint. Disposition per hospitalist. DVT prophylaxis. Prognosis: Guarded given patient's multiple co-morbidities. Rest of plan per hospitalist and other consultants. Thank you, DEE DEE Rasheed, for allowing me to participate in this patient's care. Further recommendations will depend on the patient's clinical course. Please do not hesitate to contact me if you have any questions or concerns. This medical document was created using an electronic medical record system with [employer] dictation system. Although these documentations are being carefully reviewed, there may still be some phonetic and typographical changes. The errors are purely typographical, due to imperfection on the software program, and do not reflect any compromise in the patient's medical care. DEE DEE Rasheed Dietary Evaluation Review Comments: Avoid nicotine, monitor PO intake to meet 75% of his needs. maintain wt WNL of his IBW Expected Outcomes/Goals: Recover from neck surgery Plan discussed with: Patient, Other (RN) DION MARINELLI MD Jul 19, 2024 21:43
--- NOTE | 2024-07-19 21:43 | DVHINCON2 ---
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 Patient was sent by PCP for admission for pre-op clearance and spinal surgery. He has a diagnosis of cervical myelopathy on MRI and was admitted for preop surgical clearance and spinal orthopedic surgeon consult. Pulmonary consultation is requested for evaluation and management due to stridor/difficulty swallowing. Review of Systems: 14-point review of systems negative unless otherwise noted above. Past Medical History: Hyperlipidemia and hypertension Past Surgical History: None Medications: Reviewed. Allergies: No known drug allergies. Family History: No family history of premature CAD. No family history of lung disorders. Social History: Current smoker. No alcohol or illicit drug use. Family History: Patient reports no known family medical history. Allergies: Coded Allergies: NO KNOWN ALLERGIES (Unverified , 07/11/24) Home Meds Active Scripts Methylprednisolone (Medrol Dosepak) 4 Mg Johnnie, 4 MG PO UD, #21 TAB UAD Prov:ERICA MONTERO NP 07/19/24 Hydrocodone-Acetaminophen (Hydrocodone Bitartrate/AC 10-325 mg) 1 Tab Tab, 1 TAB PO Q4HP PRN for 10 Days, #50 TAB Prov:ERICA MONTERO NP 07/19/24 Cyclobenzaprine HCl (Cyclobenzaprine Hydrochlo) 10 Mg Tab, 10 MG PO TID for 30 Days, #90 TAB Prov:ERICA MONTERO BOBCAT DRIVER/LABOR 07/19/24 Reported Medications Lisinopril (Lisinopril) 20 Mg Tab, 1 TAB PO DAILY, #30 TAB 5 Refills 07/11/24 Nifedipine (Nifedipine Er) 90 Mg Tab, 1 TAB PO DAILY, #30 TAB 5 Refills 07/11/24 Atorvastatin Calcium (ATORVASTATIN CALCIUM) 80 Mg Tab, 1 TAB PO DAILY, #30 TAB 5 Refills 07/11/24 Tamsulosin Hcl (Tamsulosin Hcl) 0.4 Mg Cap, 0.4 MG PO QPM for 30 Days, MG 07/11/24 Current Medications Current Medications Medications (Trade) Dose Ordered Sig/Julien Route PRN Reason Start Time Stop Time Status Last Admin Dexamethasone Sodium Phosphate (Decadron Injection) 10 mg DAILY IV 07/19/24 10:00 07/19/24 18:05 DC 07/19/24 09:21 Vital Signs Vital Signs Date Time Temp Pulse Resp B/P (MAP) Pulse Ox O2 Delivery O2 Flow Rate FiO2 07/19/24 16:45 97.7 82 16 132/70 (90) 98 97.7 07/19/24 08:00 Room Air* 0 21 Physical Exam Gen.: Patient lying in bed in no apparent distress. Breathing on room air. Head: Normocephalic, atraumatic. Eyes: EOMI/PERRLA. Ears: Normal hearing. Normal anatomy. Neck/trachea: Trachea midline, supple. Nose: Normal external anatomy. Mouth: Moist mucous membranes. Chest: Decreased air entry bilaterally. Stridor noted. No wheezing or rhonchi. Cardiovascular: Positive S1, positive S2. Regular rate and rhythm. Abdomen: Positive bowel sounds in all 4 quadrants. Soft, non-tender, non- distended. : Deferred. Rectal: Deferred. Skin: Warm, dry. Intact. Extremities: 2+ radial pulses bilaterally. No lower extremity edema. Neuro: Awake, alert, oriented x3. No gross motor or sensory deficits. Cranial nerves II through XII intact. Gait not assessed. Labs/Diagnostic Data Labs Test 07/19/24 11:34 07/19/24 06:34 07/18/24 11:40 07/11/24 23:59 Range/Units POC Glucose 130 H 70-106 mg/dl Sodium Level 141 136-145 mmol/L Potassium Level 3.9 3.5-5.1 mmol/L Chloride Level 106 98-107 mmol/L Carbon Dioxide Level 25 20-31 mmol/L Anion Gap 10 5-15 Blood Urea Nitrogen 14 9-23 mg/dL Creatinine 0.66 L 0.700-1.30 mg/dL Glomerular Filtration Rate Calc 104 >90 mL/min BUN/Creatinine Ratio 21.2 H 10.0-20.0 Serum Glucose 87 74-106 mg/dL Calcium Level 10.2 8.7-10.4 mg/dL Phosphorus Level 3.3 2.4-5.1 mg/dL Magnesium Level 2.0 1.6-2.6 mg/dL Total Bilirubin 0.2 0.2-1.0 mg/dL Aspartate Amino Transferase (AST) 40 13-40 U/L Alanine Aminotransferase (ALT) 61 H 7-40 U/L Alkaline Phosphatase 119 H 46-116 U/L Total Protein 7.3 5.7-8.2 g/dL Albumin 4.8 3.2-4.8 g/dL White Blood Count 14.5 #H 4.4-10.8 10^3/uL Red Blood Count 4.60 4.5-5.90 10^6/uL Hemoglobin 14.0 13.5-17.5 g/dL Hematocrit 41.5 41.0-53.0 % Mean Corpuscular Volume 90.2 80.0-100.0 fL Mean Corpuscular Hemoglobin 30.4 28.0-32.0 pg Mean Corpuscular Hemoglobin Concent 33.7 32.0-36.0 g/dL Red Cell Distribution Width 13.0 11.8-14.3 % Platelet Count 290 140-450 10^3/uL Mean Platelet Volume 9.5 6.9-10.8 fL Neutrophils (%) (Auto) 75.9 37.0-80.0 % Lymphocytes (%) (Auto) 13.8 10.0-50.0 % Monocytes (%) (Auto) 9.3 0.0-12.0 % Eosinophils (%) (Auto) 0.3 0.0-7.0 % Basophils (%) (Auto) 0.7 0.0-2.0 % Neutrophils # (Auto) 11.0 H 1.6-8.6 10 ^3/uL Lymphocytes # (Auto) 2.0 0.4-5.4 10 ^3/uL Monocytes # (Auto) 1.3 0-1.3 10 ^3/uL Eosinophils # (Auto) 0 0-0.8 10 ^3/uL Basophils # (Auto) 0.1 0-0.2 10 ^3/uL Nucleated Red Blood Cells 0.0 % Urine Color Light-yellow Yellow Urine Clarity Clear Clear Urine pH 5.5 5.0-9.0 Urine Specific [place] 1.024 1.001-1.035 Urine Protein Negative Negative Urine Ketones Negative Negative Urine Blood Trace H Negative /uL Urine Nitrite Negative Negative Urine Bilirubin Negative Negative Urine Urobilinogen Normal Negative mg/dL Urine Leukocyte Esterase Negative Negative /uL Urine RBC 1 0 - 3 /hpf Urine Microscopic WBC < 1 0-3 /HPF Urine Squamous Epithelial Cells None seen <5 /hpf Urine Bacteria None seen None Seen /hpf Urine Glucose Normal Normal mg/dL Test 07/11/24 19:13 Range/Units Prothrombin Time 10.3 9.3-11.8 sec Prothrombin Time INR 0.97 0.9-1.15 Activated Partial Thromboplast Time 25.6 24.5-34.5 SEC Assessment Impression: Stridor/difficulty swallowing Nicotine dependence Leukocytosis Acute on chronic cervical myelopathy, s/p anterior cervical diskectomy at C3-C6 Plan: On room air Supplemental oxygen PRN Titrate to keep O2 sats above 92%. CT neck w/o contrast notable for: Prevertebral fluid collection and swelling with gas at C2-C6. Prevertebral fluid collection, swelling and gas contribute to moderate narrowing of the esophagus and airway at the operative site. Status post ACDF from C2-C6 with intact hardware and good alignment Obtain CT head Stridor - steroids, continue Decadron Pain control Avoid oversedation Follow up Spine Surgery recommendations Clinimix for nutritional support Swallow evaluation. IV fluids with D5W at 75 ml/hr Monitor renal function. Monitor electrolytes. Supplement as necessary. Monitor ins and outs. Smoking cessation discussed for greater than 10 minutes DVT prophylaxis. Prognosis: Poor given patient's multiple co-morbidities. Rest of plan per hospitalist and other consultants. Thank you, DEE DEE Rasheed, for allowing me to participate in this patient's care. Further recommendations will depend on the patient's clinical course. Please do not hesitate to contact me if you have any questions or concerns. This medical document was created using an electronic medical record system with [employer] dictation system. Although these documentations are being carefully reviewed, there may still be some phonetic and typographical changes. The errors are purely typographical, due to imperfection on the software program, and do not reflect any compromise in the patient's medical care. DEE DEE Rasheed Plan discussed with: Patient, Other (RN/DEE DEE Rasheed/) DION MARINELLI MD Jul 19, 2024 21:43
== END 2024-07-19 17:09 | disposition home or self-care (01) | DRG 472 ==
LOC: ER 18:24 → OVERFLOW 23:14 → WEST WING 07-12 17:40
PROVIDERS: ADMIT Nurse Practitioner Family; ATTEND Nurse Practitioner Family
PROC: 01N10ZZ Release Cervical Nerve, Open Approach (ICD-10-PCS; 2024-07-13)
PROC: 00NW0ZZ Release Cervical Spinal Cord, Open Approach (ICD-10-PCS; 2024-07-13)
PROC: 0RB30ZZ Excision of Cervical Vertebral Disc, Open Approach (ICD-10-PCS; 2024-07-13)
PROC: 0RG20A0 Fusion of 2 or more Cervical Vertebral Joints with Interbody Fusion Device, Anterior Approach, Anterior Column, Open Approach (ICD-10-PCS; principal; 2024-07-13 07:44)
DX: M48.02 Spinal stenosis, cervical region (principal); M50.022 Cervical disc disorder at C5-C6 level with myelopathy; G54.2 Cervical root disorders, not elsewhere classified; I10 Essential (primary) hypertension; N40.0 Benign prostatic hyperplasia without lower urinary tract symptoms; M54.50 Low back pain, unspecified; E78.5 Hyperlipidemia, unspecified; G89.29 Other chronic pain; R13.10 Dysphagia, unspecified; F17.200 Nicotine dependence, unspecified, uncomplicated; D72.829 Elevated white blood cell count, unspecified; Z79.899 Other long term (current) drug therapy; M50.122 Cervical disc disorder at C5-C6 level with radiculopathy; R29.818 Other symptoms and signs involving the nervous system
CPT/HCPCS: 36415; 70490; 71045; 72040; 76000; 80048; 80053; 81001; 82962; 83735; 84100; 85025; 85610; 85730; 86850; 86900; 86901; 92507; 92610; 93005; 93306; 97110; 97116; 97163; 97530; 99291; G0378; J1100; J1815; J1885; J2250; J2405; J2704; J7042